=== PATIENT | male | born 1945 | race Caucasian/White ===

== ENCOUNTER 2017-01-04 12:52 | Outpatient (CLI) | payer MEDICARE ==
--- NOTE | 2017-01-04 13:39 | RAD ---
TWO VIEWS OF THE CHEST: 01/04/2017 HISTORY: Dyspnea. COMPARISON: 02/18/2013 FINDINGS: The lungs are hyperinflated, consistent with air trapping. Severe emphysematous changes are present . Increased linear and interstitial density is noted in the bilateral perihilar regions in both noel g bases, right greater than left, similar when compared to prior imaging. There is an old posterola teral left-sided rib fracture. There is no pneumothorax, pleural fluid, focal consolidation, or myron eolar edema. No significant interval change noted. IMPRESSION: Prominent emphysematous change with pulmonary hyperinflation, evidence of air trapping. POS: [facility]
== END 2017-01-04 12:53 | disposition home or self-care (01) ==
LOC: RAD 12:52
PROVIDERS: ATTEND Internal Medicine Critical Care Medicine
DX: R06.00 Dyspnea, unspecified (principal)
CPT/HCPCS: 71020

== ENCOUNTER 2017-07-01 12:56 | Outpatient (CLI) | payer MEDICARE ==
--- NOTE | 2017-07-01 14:20 | RAD ---
PA AND LATERAL CHEST RADIOGRAPH: Date: 07-01-17 History: Dyspnea. Comparison: 01-04-17 FINDINGS: Cardiac silhouette and pulmonary vasculature are within normal limits. Lungs are hyperinflated with l ucencies in the upper lung zones suggesting emphysematous changes within the upper lobes. There is sl ight blunting of the right lateral costophrenic angle. This is a stable finding and may be related to pleural and parenchymal scarring. Lungs otherwise appear clear. Degenerative change is again present in the spine. There is a remote fracture again seen involving the left anterior third rib. Vascular calcification seen in the thoracic aorta. IMPRESSION: Stable chest with stable chronic lung changes. No acute cardiopulmonary process is seen. POS: [facility]
== END 2017-07-01 12:57 | disposition home or self-care (01) ==
LOC: RAD 12:56
PROVIDERS: ATTEND Internal Medicine Critical Care Medicine
DX: R06.00 Dyspnea, unspecified (principal)
CPT/HCPCS: 71046

== ENCOUNTER 2017-07-13 10:36 | Outpatient (CLI) | payer MEDICARE ==
--- NOTE | 2017-07-13 12:43 | RAD ---
PA AND LATERAL CHEST: HISTORY: A 71-year-old male with a history of dyspnea. COMPARISON: 07/01/2017 FINDINGS: Marked stable bilateral hyperinflation and chronic lung changes. No confluent pneumonia, overt edema , or pleural effusion. Stable right costophrenic angle blunting and biapical pleural thickening. IMPRESSION: Stable appearing hyperinflation and chronic lung changes. No new process. POS: [facility]
== END 2017-07-13 10:37 | disposition home or self-care (01) ==
LOC: RAD 10:36
PROVIDERS: ATTEND Internal Medicine Critical Care Medicine
DX: R06.00 Dyspnea, unspecified (principal); J98.4 Other disorders of lung
CPT/HCPCS: 71046

== ENCOUNTER 2017-08-03 12:44 | Outpatient (CLI) | payer MEDICARE ==
--- NOTE | 2017-08-03 14:25 | RAD ---
TWO VIEWS OF THE CHEST: COMPARISON: 07/13/17. HISTORY: Dyspnea. FINDINGS: Two views of the chest show a cardiomediastinal silhouette which his upper limits of normal in size w ith atherosclerotic calcifications in the aorta. There is hyperexpansion of the lungs which may be s econdary to COPD. There is no evidence of consolidation, mass, or pleural effusion. Degenerative ch anges are seen in the spine. IMPRESSION: No evidence of acute cardiopulmonary disease. POS: [facility]
== END 2017-08-03 12:45 | disposition home or self-care (01) ==
LOC: RAD 12:44
PROVIDERS: ATTEND Internal Medicine Critical Care Medicine
DX: R06.00 Dyspnea, unspecified (principal)
CPT/HCPCS: 71046

== ENCOUNTER 2018-04-12 08:56 | Outpatient (CLI) | payer MEDICARE | END 2018-04-12 08:57 | disposition home or self-care (01) | LOC: CTENTCT 08:56 | PROVIDERS: ATTEND Specialist | DX: J01.90 Acute sinusitis, unspecified (principal) | CPT/HCPCS: 70486 ==

== ENCOUNTER 2018-09-01 21:46 | Inpatient (IN) | payer MEDICARE ==
[2018-09-01] MEDS ORDERED: Dexamethasone 4 mg/ml Vial ONE ×2 (22:05→22:06)
[2018-09-01] MEDS ORDERED: cefTRIAXone\\ROCEPHIN 1 GM VIAL ONE (22:06)
[2018-09-01 22:13] LABS: #Eosinphils 0.1 thou/uL (0.0-0.7); #Lymphocytes 1.2 thou/uL (1.20-3.40); #Monocytes 1.2 thou/uL (0.11-0.59); %Basophils 0.3 % (0.0-1.0); %Eosinophils 0.3 % (0.0-10.0); %Lymphocytes 7.1 % (21.0-51.0); %Monocytes 7.4 % (0.0-10.0); Hemoglobin 14.7 g/dL (14.0-18.0); Mean Corpuscular HGB CONC 33.6 g/dL (32.0-36.0); Mean Corpuscular Hemoglobin 32.7 pg (27.0-31.0); Mean Corpuscular Volume 97.5 fL (78.0-98.0); Mean Platelet Volume 8.1 fL (7.4-10.4); Platelet Count 198 thou/uL (130-400); White Blood Cell (WBC) Count 16.5 thou/uL (4.8-10.8)
[2018-09-01] MEDS ORDERED: Azithromycin 500 MG VIAL ONE (22:19)
[2018-09-01 22:35] LABS: ALT (SGPT) 526 U/L (8-55); AST (SGOT) 424 U/L (5-34); Albumin 4.1 g/dL (3.4-4.8); Alkaline Phosphatase 349 U/L (40-150); Anion Gap 13 mmol/L (10-20); BUN (Urea Nitrogen) 22 mg/dL (8.4-25.7); Bilirubin, Total 2.5 mg/dL (0.2-1.2); Calc. Creatinine Clearance 0 mL/min (70-130); Calcium 9.5 mg/dL (7.8-10.44); Carbon Dioxide 28 mmol/L (23-31); Chloride 93 mmol/L (98-107); Estimated GFR-MDRD 68; Globulin 2.8 g/dL (2.4-3.5); Glucose 140 mg/dL (80-115); Potassium 4.2 mmol/L (3.5-5.1); Protein, Total 6.9 g/dL (5.8-8.1); Sodium 130 mmol/L (136-145)
--- NOTE | 2018-09-01 23:03 | RAD ---
PORTABLE AP CHEST X-RAY 09/01/18 HISTORY: Difficulty breathing. COMPARISON: 01/28/18. FINDINGS: There is increased interstitial densities present at each lung base with findings at the right lung s imilar to prior exam and likely related to mild chronic lung changes. However, the interstitial densi ties and patchy parenchymal densities at the left lung base represent an interval change and findings are worrisome for developing pneumonia at the left lung base. Cardiac silhouette and pulmonary vasculature are within normal limits. Vascular calcifications seen in the thoracic aorta. No other interval change. IMPRESSION: 1. Pneumonia at the left lung base. Follow-up to resolution is recommended. 2. Chronic lung changes. POS: [facility]
[2018-09-02] MEDS ORDERED: Acetaminophen 325 MG TAB PO PRN ×2 (01:33→06:30)
[2018-09-02] MEDS ORDERED: Ondansetron ODT 4 MG TAB SL PRN (01:33)
[2018-09-02] MEDS ORDERED: Ondansetron PF 4 MG/2 ML Vial IVP PRN (01:33)
[2018-09-02] MEDS ORDERED: Senokot S 8.6-50 MG TAB PO PRN (06:30)
[2018-09-02] MEDS ORDERED: Cepastat Lozenges 1 LOZ PO PRN (06:30)
[2018-09-02] MEDS ORDERED: Metoclopramide HCl 10 MG/2 ML VIAL IVP PRN (06:30)
[2018-09-02] MEDS ORDERED: Diabetic Tussin 200 MG/10 ML UDCUP PO PRN (06:30)
[2018-09-02] MEDS ORDERED: Loperamide HCl 2 MG CAP PO PRN (06:30)
[2018-09-02] MEDS ORDERED: Artificial Tears 18 DROP/0.9 ML EA EYE PRN (06:30)
[2018-09-02] MEDS ORDERED: Calcium Carbonate 500 MG ChewTAB PO PRN (06:30)
[2018-09-02] MEDS ORDERED: Loratadine 10 MG TAB PO PRN (06:30)
[2018-09-02] MEDS ORDERED: cloNIDine 0.1 MG TAB PO PRN (06:30)
[2018-09-02] MEDS ORDERED: Bisacodyl 10 MG SUPP PR PRN (06:30)
[2018-09-02] MEDS ORDERED: Sodium Chloride 0.65% Nasal 44 ML BOT EA NARE PRN (06:30)
[2018-09-02] MEDS ORDERED: Zolpidem Tartrate 5 MG TAB PO PRN (06:30)
[2018-09-02] MEDS ORDERED: Bisacodyl 5 MG TAB PO PRN (06:30)
[2018-09-02] MEDS ORDERED: methylPREDNISolone Sod Succ 40 MG VIAL IVP SCH (08:00)
[2018-09-02 08:11] LABS: HBCM Index 0.06 S/CO (0-0.79); HBSAg Index 0.28 S/CO (0-0.99); Hep A IgM AB Non-Reactive (NonReactive); Hep A IgM S/CO 0.13 S/CO (0-0.79); Hep B Surf Ag Non-Reactive S/CO (NonReactive); Hep C IgG Ab Non-Reactive (NonReactive); Hep C Index 0.09 S/CO (0-0.79); Hepatitis B Core IgM Abs Non-Reactive (NonReactive)
[2018-09-02] MEDS: Mometasone/Formoterol 120 PUFF INHALER INH SCH ×2 (08:21→18:32)
[2018-09-02] MEDS ORDERED: TERAZOSIN HCL 5 MG PO SCH (09:00)
[2018-09-02] MEDS ORDERED: Non-Formulary Item 1 EACH (Ascorbic Acid [Vitamin C] 1,000 MG) PO SCH (09:00)
[2018-09-02] MEDS ORDERED: Metoprolol Tartrate 100 MG TAB PO SCH (09:00)
[2018-09-02] MEDS ORDERED: Non-Formulary Item 1 EACH (Vit A/Vit C/Vit E/Zinc/Copper [Preservision Areds] 1 TABLET) PO SCH (09:00)
[2018-09-02] MEDS: Ascorbic Acid 500 mg Chewable Tablet PO SCH (09:08)
[2018-09-02] MEDS: guaiFENesin ER 600 MG TAB PO SCH ×2 (09:09→21:01)
[2018-09-02] MEDS: Triamterene/Hydrochlorothiazide 37.5 mg/25 mg Tablet PO SCH (09:09)
[2018-09-02] MEDS: Metoprolol Tartrate 50 MG TAB PO SCH (09:09)
[2018-09-02] MEDS: Apixaban 5 MG TAB PO SCH ×2 (09:09→21:01)
[2018-09-02] MEDS: Famotidine 20 MG TAB PO SCH ×2 (09:10→21:01)
[2018-09-02] MEDS: Montelukast Sodium 10 mg Tablet PO SCH (09:10)
[2018-09-02] MEDS: Digoxin 0.125 MG TAB PO SCH (09:10)
[2018-09-02] MEDS: Vit A,C & E/Lutein/Minerals Tablet PO SCH (09:13)
[2018-09-02] MEDS: Finasteride 5 MG TAB PO SCH (09:14)
[2018-09-02] MEDS: Citalopram 20 MG TAB PO SCH (09:14)
--- NOTE | 2018-09-02 10:59 | HP ---
PRIMARY CARE PHYSICIAN: [facility]. The patient primary care physician in [place], [place]. REASON FOR ADMISSION: Sepsis. HISTORY OF PRESENT ILLNESS: A 72-year-old male who has underlying history of atrial fibrillation as well as a history of lung cancer and COPD, who presented to emergency room last night with complaint of fever with chills. The patient was also having shortness of breath. The patient reports that yesterday around 3:00 p.m., he was experiencing body ache, joint pain, chest discomfort, shoulder pain and he was started having chills. He was having temperature 101 at home. He was also having cough, which was productive of yellowish sputum without any blood for last 2-3 days. He was having increasing cough, increasing sputum initially and subsequently sputum reduced yesterday. He was feeling generalized weakness. He had one episode of vomiting yesterday. He was denying any abdominal pain. He denies any sick exposure. He denies any recent travel. He denies any recent upper respiratory infection. In the emergency room, the patient was evaluated and he had leukocytosis with left shift, hyponatremia, abnormal LFT and his chest x-ray showed left lower lobe pneumonia. The patient was given Rocephin and azithromycin in the emergency room. Subsequently, he was admitted to the medical floor. When I saw this morning, the patient was feeling much better. The patient denies any UTI symptoms. He denies any constipation, diarrhea, or abdominal pain. He denies any headache or focal neurological deficit. REVIEW OF SYSTEMS: CONSTITUTIONAL: Negative for weight loss or gain, ability to conduct usual activities. SKIN: Negative for rash, itching. EYES: Negative for double vision, pain. ENT/MOUTH: Negative for nose bleeding, neck stiffness, pain, tenderness. CARDIOVASCULAR: Negative for palpitations, dyspnea on exertion, orthopnea. RESPIRATORY: Negative for shortness of breath, wheezing, cough, hemoptysis, fever or night sweats. GASTROINTESTINAL: Negative for poor appetite, abdominal pain, heartburn, nausea, vomiting, constipation, or diarrhea. GENITOURINARY: Negative for urgency, frequency, dysuria, nocturia. MUSCULOSKELETAL: Negative for pain, swelling. NEUROLOGIC/PSYCHIATRIC: Negative for anxiety, depression. ALLERGY/IMMUNOLOGIC: Negative for skin rash, bleeding tendency. Please see my HPI for pertinent positives and negatives. All other review of systems reviewed and negative except as mentioned in HPI. PAST MEDICAL HISTORY: 1. Paroxysmal atrial fibrillation. 2. History of lung cancer, treated with chemotherapy. 3. COPD. 4. Benign enlargement of prostate. 5. Hypertension. 6. Chronic anticoagulation with Eliquis. PAST PSYCHIATRIC HISTORY: 1. Anxiety. 2. Depression. PAST SURGICAL HISTORY: 1. Right upper lobe lobectomy. 2. Cholecystectomy. 3. Right elbow surgery. 4. Lumbar spine surgery. SOCIAL HISTORY: The patient drinks alcohol socially twice a month. He is a former smoker, he quit smoking few years ago. He denies any other illicit drug abuse. FAMILY HISTORY: No strong family history of premature coronary artery disease, stroke, or cancer. ALLERGIES: DEMEROL. CURRENT HOME MEDICATIONS: 1. Ventolin HFA two puffs q.6 h. p.r.n. 2. Eliquis 5 mg p.o. b.i.d. 3. Vitamin C 1000 mg p.o. daily. 4. Symbicort one puff inhalation b.i.d. 5. Celexa 40 mg daily. 6. Digoxin 125 mcg p.o. daily. 7. Proscar 5 mg daily. 8. Lopressor 50 mg daily. 9. Singulair 10 mg daily. 10. Red yeast rice 1200 mg p.o. daily. 11. Hytrin 5 mg p.o. daily. 12. Triamterene with hydrochlorothiazide one tablet daily. 13. Ocuvite one tablet p.o. daily. EMERGENCY ROOM COURSE: The patient was given Rocephin 1 g, azithromycin 500 mg, DuoNeb therapy, and Decadron 10 mg IV push. PHYSICAL EXAMINATION: VITAL SIGNS: On arrival, blood pressure 114/62, pulse 93 and irregular, respiratory rate 18, temperature 98.2, and saturation 99% on room air. Weight 95.2 kg. GENERAL: The patient is currently alert and awake, in no obvious acute distress. HEAD: Normocephalic and atraumatic. EYES: Pupils round and reactive to light. Extraocular muscles intact. ENT: Oropharynx within normal limits. Moist mucous membranes. No oral lesion. No pharyngeal erythema. No exudate. NECK: Supple. No JVD. No thyromegaly. No carotid bruit. No jugular venous distention. LUNGS: Air entry reduced at left base. A few rales noted. No wheeze. No rhonchi. No accessory muscles of respiration in use. CARDIAC: S1 and S2 appear irregular, rate controlled. No murmur. No gallop. No rub. ABDOMEN: Soft. No Olmos sign. No epigastric discomfort. No suprapubic tenderness. No organomegaly. No mass. No peritoneal sign. BACK: Unremarkable. No CVA tenderness. EXTREMITIES: Upper extremities; passive movements of all joints are normal. Lower extremities; no edema, good distal pulsation, no calf tenderness. SKIN: No skin rash. HEMATOLOGICAL SYSTEM: No lymphadenopathy. PSYCHIATRIC: Normal affect. NEUROLOGIC: Nonfocal examination. SIGNIFICANT LABORATORY DATA: EKG showing AFib with rapid ventricular response, but heart rate is only 106. Chest x-ray showing left lower lobe pneumonia. CBC; WBC 16.5, hemoglobin 14.7, and platelets 198. BMP; sodium 130, potassium 4.2, chloride 93, carbon dioxide 28, anion gap 13, BUN 22, creatinine 1.07, glucose 140, and calcium 9.5. Lactic acid 1.8. LFT; bilirubin 2.5, AST 424, ALT 526, alkaline phosphatase 349, and albumin 4.1. Troponin less than 0.010 and BNP 77. Hepatitis profile negative. ASSESSMENT AND PLAN: Impression: 1. Sepsis. The patient has fever, chills, leukocytosis with left shift. Source of infection is left basal pneumonia. The patient is admitted in the hospital and receiving antibiotic therapy as well as IV fluid. 2. Left lower lobe pneumonia, community-acquired. Blood culture sent. We will continue with Rocephin 1 g q.24 h., Levaquin 750 mg IV daily, Mucinex 600 mg twice daily, and DuoNeb therapy q.6 h. 3. Chronic obstructive pulmonary disease with mild exacerbation. We will continue DuoNeb q.6 h., Dulera two-puff inhalation b.i.d., Singulair 10 mg daily, Mucinex 600 mg twice daily, empiric antibiotic therapy with Rocephin and levofloxacin. 4. Paroxysmal atrial fibrillation. We will continue digoxin 0.125 mg p.o. daily, metoprolol 50 mg daily, and Eliquis 5 mg p.o. b.i.d. 5. Benign enlargement of prostate. We will continue terazosin 5 mg p.o. daily. 6. Hypertension. If blood pressure permits, then we will continue triamterene and hydrochlorothiazide one tablet p.o. daily. 7. Abnormal liver function test. The patient has cholecystectomy done in the past, suspecting for choledocholithiasis. At this point, the patient is completely asymptomatic without any Olmos sign, without any abdominal pain. Seems like even if he had stone, then stone might have passed. We will obtain right upper quadrant ultrasound. Hepatitis profile negative. We will repeat LFT tomorrow. 8. Hyponatremia and hypochloremia. The patient will be given NS at 100 mL/h and we will repeat labs tomorrow. 9. Deep venous thrombosis prophylaxis, not needed because the patient is already on Eliquis therapy. 10. Gastrointestinal prophylaxis, Pepcid 20 mg p.o. b.i.d. 11. Code status. The patient is full code. The patient does not have any surrogate decision maker. DISPOSITION PLAN: Based on clinical course while in the hospital, we will also evaluate with PT/OT. Plan of care discussed with the patient's family member at bedside in detail and answered all their questions. Job ID: [id number]
[2018-09-02 11:22] LABS: Bilirubin Negative (Negative); Blood, Urine Negative (Negative); Clarity CLEAR (Clear); Glucose, Urine (Dipstick) Negative (Negative); Leukocyte Negative (Negative); Nitrite Negative (Negative); Protein, Urine (Dipstick) Negative (Neg-Trace); Specific Gravity, Urine 1.009 (1.002-1.036); Urobilinogen 0.2 mg/dL (0.2-1.0); pH, Urine 6.5 (5.0-9.0)
[2018-09-02 11:28] LABS: Bacteria/HPF None Seen HPF (None Seen); Hyaline Casts/LPF 0-3 HYALINE CAST LPF (0-3 Hyaline); Pathc Cast-AUWi Flag 0.13 (0-2.49); RBC/HPF None Seen HPF (0-3); Squamous Epithelial None Seen HPF (0-3); WBC/HPF None Seen HPF (0-3)
[2018-09-02 11:31] LABS: Strep pneumo Urine Ag NEGATIVE (NEGATIVE)
--- NOTE | 2018-09-02 11:32 | ULT ---
Gallbladder ultrasound: Multiple grayscale images of right upper quadrant obtained according to protocol. INDICATION: Pain FINDINGS: Liver: Normal Gallbladder: Surgically absent Olmos's Sign: Negative Common bile duct is normal. Ascites: None IMPRESSION: Surgical absence of gallbladder. No acute abnormality identified within right upper quadrant.
[2018-09-02] MEDS: Sodium Chloride 0.9% 1,000 ML IV SCH ×2 (13:17→21:06)
[2018-09-02] MEDS ORDERED: cefTRIAXone\\ROCEPHIN 1 GM in Sodium Chloride 0.9% 100 ML IVPB SCH (21:00)
[2018-09-02] MEDS ORDERED: Terazosin HCl 5 MG CAP PO SCH (21:00)
[2018-09-03 06:00] LABS: #Lymphocytes 1.4 thou/uL (1.20-3.40); #Monocytes 0.9 thou/uL (0.11-0.59); #Neutrophils 10.1 thou/uL (1.40-6.50); %Basophils 0.1 % (0.0-1.0); %Eosinophils 0.3 % (0.0-10.0); %Lymphocytes 11.3 % (21.0-51.0); %Monocytes 7.3 % (0.0-10.0); %Neutrophils 81.1 % (42.0-75.0); Hemoglobin 13.8 g/dL (14.0-18.0); Mean Corpuscular HGB CONC 32.8 g/dL (32.0-36.0); Mean Corpuscular Hemoglobin 32.4 pg (27.0-31.0); Mean Corpuscular Volume 98.8 fL (78.0-98.0); Platelet Count 198 thou/uL (130-400); RBC Distribution Width 11.8 % (11.5-14.5); Red Blood Cell (RBC) Count 4.24 mill/uL (4.70-6.10); White Blood Cell (WBC) Count 12.4 thou/uL (4.8-10.8)
[2018-09-03 06:26] LABS: ALT (SGPT) 356 U/L (8-55); AST (SGOT) 79 U/L (5-34); Albumin 3.9 g/dL (3.4-4.8); Alkaline Phosphatase 265 U/L (40-150); Anion Gap 12 mmol/L (10-20); BUN (Urea Nitrogen) 14 mg/dL (8.4-25.7); Bilirubin, Total 0.8 mg/dL (0.2-1.2); Calc. Creatinine Clearance 116 mL/min (70-130); Calcium 9.2 mg/dL (7.8-10.44); Carbon Dioxide 26 mmol/L (23-31); Chloride 99 mmol/L (98-107); Estimated GFR-MDRD Greater than 90; Globulin 2.7 g/dL (2.4-3.5); Glucose 114 mg/dL (80-115); Potassium 3.4 mmol/L (3.5-5.1); Protein, Total 6.6 g/dL (5.8-8.1); Sodium 134 mmol/L (136-145)
[2018-09-03] MEDS: Mometasone/Formoterol 120 PUFF INHALER INH SCH (07:18)
[2018-09-03] MEDS: Vit A,C & E/Lutein/Minerals Tablet PO SCH (08:01)
[2018-09-03] MEDS: Triamterene/Hydrochlorothiazide 37.5 mg/25 mg Tablet PO SCH (08:01)
[2018-09-03] MEDS: Famotidine 20 MG TAB PO SCH (08:01)
[2018-09-03] MEDS: Apixaban 5 MG TAB PO SCH (08:02)
[2018-09-03] MEDS: Digoxin 0.125 MG TAB PO SCH (08:02)
[2018-09-03] MEDS: Citalopram 20 MG TAB PO SCH (08:02)
[2018-09-03] MEDS: Finasteride 5 MG TAB PO SCH (08:02)
[2018-09-03] MEDS: Ascorbic Acid 500 mg Chewable Tablet PO SCH (08:04)
[2018-09-03] MEDS: Metoprolol Tartrate 50 MG TAB PO SCH (08:04)
[2018-09-03] MEDS: guaiFENesin ER 600 MG TAB PO SCH (08:04)
[2018-09-03] MEDS: Montelukast Sodium 10 mg Tablet PO SCH (08:05)
[2018-09-03 08:40] VITALS: BP 117/56; TEMP 97.2
--- NOTE | 2018-09-03 10:53 | DIS ---
DATE OF ADMISSION: 09/01/2018 DATE OF DISCHARGE: 09/03/2018 PRIMARY CARE PHYSICIAN: Dr. Juan Manuel Tomlin. DISCHARGE DISPOSITION: Home. PRIMARY DISCHARGE DIAGNOSES: 1. Community-acquired bacterial pneumonia (left lower lobe). 2. Abnormal LFT, suspected from choledocholithiasis, improving. 3. Hypokalemia. 4. Hyponatremia. 5. 'Sepsis. SECONDARY DISCHARGE DIAGNOSES: 1. Paroxysmal atrial fibrillation. 2. Hypertension. 3. History of lung cancer. 4. Chronic obstructive pulmonary disease. 5. Chronic anticoagulation. 6. Benign enlargement of prostate. PRIMARY PROCEDURE/OPERATION: None. RADIOLOGICAL INVESTIGATION: Chest x-ray showed left lower lobe infiltration consistent with pneumonia. SIGNIFICANT LABORATORY DATA: WBC 12.4, hemoglobin 13.8, and platelets are 198. Sodium 134, potassium 3.4, BUN 14, and creatinine 0.84. AST 79, ALT 356, alkaline phosphatase 265. BNP 77. Troponin, negative. Albumin 3.9. Hepatitis profile, negative. Urine strep pneumoniae antigen, negative. Urinalysis, normal. DISCHARGE MEDICATIONS: New medication: 1. Levaquin 750 mg p.o. daily for 7 days. Continue following medication: 1. Ventolin HFA two two puffs q.6 hourly p.r.n. 2. Eliquis 5 mg p.o. b.i.d. 3. Vitamin C 1000 mg p.o. daily. 4. Symbicort one puff inhalation b.i.d. 5. Celexa 40 mg daily. 6. Digoxin 125 mcg p.o. daily. 7. Proscar 5 mg daily. 8. Lopressor 50 mg daily. 9. Singulair 10 mg daily. 10. Red yeast rice 1200 mg p.o. daily. 11. Hytrin 5 mg p.o. daily. 12. Dyazide 1 tablet daily. 13. Multi mineral one tablet daily. CONTRAINDICATION: None. CODE STATUS: Full code. INPATIENT ASSISTANT MANAGER RETAIL: None. ALLERGIES: DEMEROL. DISCHARGE PLAN: Posthospital, the patient will follow up with Dr. Juan Manuel Tomlin in one week, the patient's primary care physician requested to repeat LFT as well as chest x-ray in 2 to 3 weeks. HOSPITAL COURSE: A 72-year-old male, who was having lower respiratory symptoms with cough and shortness of breath for last 2 to 3 days and on the day of admission, he was feeling bad with nausea, vomiting, vague abdominal discomfort, and feeling sick. He was also having high-grade fever at home. He arrived to emergency room. He was found with abnormal LFT. He had sepsis criteria. His chest x-ray showed left lower lobe pneumonia. We also suspected choledocholithiasis. We did a hepatitis profile, which came back negative. Abdominal ultrasound was also normal. His LFT also started improving. Our suspicion is that he might have passed a stone from bile duct. At this point, his bile duct is within normal limit and he does not have any Olmos sign. We advised him to follow up with his primary care physician and repeat LFT within a week. If LFT is abnormal, then he may need further investigation or referral to architectural manager. This patient does not want to stay in hospital for more monitoring. I gave him option of staying in the hospital and repeat labs tomorrow and further investigation if needed, but he prefers to go home and do as an outpatient basis with help of his primary care physician. His primary care physician has also requested to repeat chest x-ray to see resolution of pneumonia. This patient is on room air. He is feeling much better. He wants to go home. I have seen and examined the patient at bedside today, all vitals are normal. His examination is completely normal. Plan of care discussed with the patient and his at bedside. Job ID: [id number]
--- NOTE | 2018-09-03 12:07 | EKG ---
Test Reason : Blood Pressure : / mmHG Vent. Rate : 106 BPM Atrial Rate : 108 BPM P-R Int : 000 ms QRS Dur : 094 ms QT Int : 300 ms P-R-T Axes : 000 052 062 degrees QTc Int : 398 ms Atrial fibrillation with rapid ventricular response Abnormal ECG Confirmed by LUIS ELISE M.D. ([id number]), editor city [place] ([id number]) on 09/03/2018 12:07:16 PM Referred By: Confirmed By:LUIS ELISE M.D.
[2018-09-06 01:07] LABS: L.pneumophilia Abs <0.91 OD ratio (0.00-0.90)
== END 2018-09-03 10:40 | disposition home or self-care (01) | DRG 871 ==
LOC: ERS 21:46 → SJJU 23:37
PROVIDERS: ADMIT Hospitalist; ATTEND Hospitalist
DX: A41.9 Sepsis, unspecified organism (principal); J18.9 Pneumonia, unspecified organism; J44.0 Chronic obstructive pulmonary disease with (acute) lower respiratory infection; J44.1 Chronic obstructive pulmonary disease with (acute) exacerbation; E87.1 Hypo-osmolality and hyponatremia; I48.0 Paroxysmal atrial fibrillation; N40.0 Benign prostatic hyperplasia without lower urinary tract symptoms; I10 Essential (primary) hypertension; F41.9 Anxiety disorder, unspecified; F32.9 Major depressive disorder, single episode, unspecified; R94.5 Abnormal results of liver function studies; E87.8 Other disorders of electrolyte and fluid balance, not elsewhere classified; E87.6 Hypokalemia; Z85.118 Personal history of other malignant neoplasm of bronchus and lung; Z90.49 Acquired absence of other specified parts of digestive tract; Z87.891 Personal history of nicotine dependence
CPT/HCPCS: 36415; 71045; 76705; 80053; 80074; 81001; 83605; 83880; 84484; 85025; 86713; 87040; 87633; 87804; 87899; 93005; 94640; 96365; 96367; 96375; J0456; J0696; J1100; J1956; J2920; J3490; J7620

== ENCOUNTER 2019-01-23 10:30 | Inpatient (IN) | payer MEDICARE ==
[2019-01-20 13:40] VITALS: BMI 27.7
[2019-01-23 11:42] LABS: #Basophils 0.1 thou/uL (0.0-0.2); #Eosinphils 0.1 thou/uL (0.0-0.7); #Lymphocytes 2.1 thou/uL (1.20-3.40); #Monocytes 0.8 thou/uL (0.11-0.59); #Neutrophils 6.3 thou/uL (1.40-6.50); %Basophils 0.8 % (0.0-1.0); %Lymphocytes 21.9 % (21.0-51.0); %Monocytes 8.9 % (0.0-10.0); %Neutrophils 67.4 % (42.0-75.0); Hemoglobin 15.5 g/dL (14.0-18.0); Mean Corpuscular HGB CONC 33.5 g/dL (32.0-36.0); Mean Corpuscular Hemoglobin 32.7 pg (27.0-31.0); Mean Corpuscular Volume 97.7 fL (78.0-98.0); Mean Platelet Volume 7.9 fL (7.4-10.4); Platelet Count 208 thou/uL (130-400); Red Blood Cell (RBC) Count 4.73 mill/uL (4.70-6.10); White Blood Cell (WBC) Count 9.4 thou/uL (4.8-10.8)
[2019-01-23 11:52] LABS: INR-International Normal Ratio 0.9; PTT 31.2 SEC (22.9-36.1); Prothrombin Time 12.5 SEC (12.0-14.7)
[2019-01-23] MEDS ORDERED: Sodium Chloride 0.9% 100 ML ONE (11:53)
[2019-01-23] MEDS ORDERED: cefTRIAXone\\ROCEPHIN 2 GM VIAL ONE (11:53)
[2019-01-23 12:12] LABS: Anion Gap 13 mmol/L (10-20); BUN (Urea Nitrogen) 18 mg/dL (8.4-25.7); Calc. Creatinine Clearance 99 mL/min (70-130); Calcium 9.8 mg/dL (7.8-10.44); Carbon Dioxide 29 mmol/L (23-31); Chloride 99 mmol/L (98-107); Estimated GFR-MDRD 81; Glucose 99 mg/dL (83-110); Potassium 4.1 mmol/L (3.5-5.1); Sodium 137 mmol/L (136-145)
[2019-01-23] MEDS ORDERED: Fentanyl 100 MCG/2 ML VIAL ONE ×3 (13:07→17:49)
[2019-01-23] MEDS ORDERED: Ondansetron HCl/PF 4 MG/2 ML Vial IVP PRN (15:05)
[2019-01-23] MEDS ORDERED: Promethazine HCl 25 MG/ML VIAL IM PRN (15:05)
[2019-01-23] MEDS ORDERED: Promethazine HCl 25 MG/ML VIAL SLOW IVP PRN (15:05)
[2019-01-23] MEDS ORDERED: Lidocaine 1% PF 5 ML VIAL ONE (15:38)
[2019-01-23] MEDS ORDERED: ePHEDrine 50 MG/ML VIAL ONE (15:38)
[2019-01-23] MEDS ORDERED: PROPOFOL 200 MG/20 ML VIAL ONE (15:38)
[2019-01-23] MEDS ORDERED: Ondansetron PF 4 MG/2 ML Vial ONE (15:38)
[2019-01-23] MEDS ORDERED: Acetaminophen/Codeine 30-300mg Tablet PO PRN (15:46)
[2019-01-23] MEDS ORDERED: B & O ONE (15:48)
[2019-01-23] MEDS ORDERED: [UNRECOGNIZED DRUG - REMARK] FS SCH (16:00)
[2019-01-23] MEDS ORDERED: B & O PR SCH (16:00)
--- NOTE | 2019-01-23 19:18 | OP ---
DATE OF PROCEDURE: 01/23/2019 PREOPERATIVE DIAGNOSES: Lower urinary tract symptoms and bladder outlet obstruction. POSTOPERATIVE DIAGNOSES: Lower urinary tract symptoms and bladder outlet obstruction. PROCEDURES PERFORMED: Cystoscopy and transurethral resection of the prostate. ANESTHETIC: General. EBL: 150 mL. DRAINS: A 22-Belarusian Chu catheter with 60 mL in the balloon. FINDINGS: He had 1+ trabeculation to ureteral orifices, normal position. Clear efflux. No bladder tumor, foreign body, or stone. Large trilobar BPH. DESCRIPTION OF PROCEDURE: Obtained written and verbal consent from the patient, after documenting normal preop blood work and after receiving IV antibiotics, he was taken to the operating suite. He was placed in the supine position on the treatment table. PlexiPulses were placed on his lower extremities and turned on. He was given a general anesthetic and oral obturator intubation. He was placed in the dorsal lithotomy position. He was sterilely prepped and draped. Cystoscopy was performed with a 22-Belarusian sheath, this was well lubricated and passed under direct vision through the male urethra into the urinary bladder. The bladder was examined both the 30 and the 70-degree lens with the findings as above. At this point, we brought in a 24-Belarusian resectoscope sheath with a visual obturator. It was well lubricated and with the aid of a 30-degree lens and video camera and monitor was passed through the male urethra into the bladder. We did have to dilate him from 22 to 26-Belarusian with Andrew sounds to easily pass this. The bladder was filled and emptied number of times. Our landmarks including the verumontanum, the bladder neck, and the ureteral orifices, and trigone were identified. We initially resected the median lobe up off the bladder neck back to capsular fibers. We then resected the floor from the bladder neck to just proximal to the verumontanum. Resection was done back to capsular fibers. The left lobe was taken down from the 1 o'clock to 5 o'clock position and the right lobe from the 11 o'clock to 7 o'clock position. Apical tissue was resected in halfly bites. The chips were evacuated from the bladder with the [employer] evacuator. Repeat cystoscopy showed no further chips in the bladder and normal-appearing trigone and bladder neck. We obtained hemostasis with electrocautery unit as we went and then at the end, assured hemostasis with the same unit. At this point, the instruments were removed. A Chu catheter was placed 22-Belarusian with aid of a catheter guide, 60 mL were placed in the balloon. It was hand irrigated and it was clear. He was placed on light traction on his right thigh with a Velcro leg strap and he was started on continuous bladder irrigation. He was then awakened and extubated and taken by stretcher to the recovery room. Job ID: [id number]
[2019-01-23] MEDS: Acetaminophen/Codeine 30-300mg Tablet PO PRN (22:45)
[2019-01-23] MEDS: Docusate 100 MG CAP PO SCH (22:47)
[2019-01-23] MEDS ORDERED: B & O PR PRN (23:00)
[2019-01-23] MEDS ORDERED: PROVENTIL INHALER 6.7 G (200 INHALATIONS) INH PRN (23:28)
[2019-01-24] MEDS: Mometasone/Formoterol 120 PUFF INHALER INH SCH ×2 (07:04→18:42)
[2019-01-24] MEDS ORDERED: RED YEAST RICE 600MG PO SCH (09:00)
[2019-01-24] MEDS: Finasteride 5 MG TAB PO SCH (10:07)
[2019-01-24] MEDS: Triamterene/Hydrochlorothiazide 37.5 mg/25 mg Tablet PO SCH (10:07)
[2019-01-24] MEDS: Ascorbic Acid 500 mg Chewable Tablet PO SCH (10:08)
[2019-01-24] MEDS: Vit A,C & E/Lutein/Minerals Tablet PO SCH (10:08)
[2019-01-24] MEDS: Docusate 100 MG CAP PO SCH ×2 (10:09→21:30)
[2019-01-24] MEDS: Citalopram 20 MG TAB PO SCH (10:10)
[2019-01-24] MEDS: Digoxin 0.125 MG TAB PO SCH (10:10)
[2019-01-24] MEDS: cefTRIAXone\\ROCEPHIN 1 GM in Sodium Chloride 0.9% 100 ML IVPB SCH (13:09)
[2019-01-24] MEDS: Acetaminophen/Codeine 30-300mg Tablet PO PRN (17:28)
[2019-01-24] MEDS ORDERED: Metoprolol Tartrate 50 MG TAB PO SCH (21:00)
[2019-01-24] MEDS ORDERED: ROFLUMILAST 500 MCG PO SCH (21:00)
[2019-01-24] MEDS ORDERED: Montelukast Sodium 10 mg Tablet PO SCH (21:00)
[2019-01-25] MEDS: Acetaminophen/Codeine 30-300mg Tablet PO PRN (03:55)
[2019-01-25] MEDS: Mometasone/Formoterol 120 PUFF INHALER INH SCH (07:40)
[2019-01-25] MEDS: Citalopram 20 MG TAB PO SCH (08:58)
[2019-01-25] MEDS: Digoxin 0.125 MG TAB PO SCH (08:58)
[2019-01-25] MEDS: Finasteride 5 MG TAB PO SCH (08:58)
[2019-01-25] MEDS: Triamterene/Hydrochlorothiazide 37.5 mg/25 mg Tablet PO SCH (08:59)
[2019-01-25] MEDS: Ascorbic Acid 500 mg Chewable Tablet PO SCH (09:00)
[2019-01-25] MEDS: Vit A,C & E/Lutein/Minerals Tablet PO SCH (09:00)
[2019-01-25] MEDS: Docusate 100 MG CAP PO SCH (09:00)
[2019-01-25] MEDS: cefTRIAXone\\ROCEPHIN 1 GM in Sodium Chloride 0.9% 100 ML IVPB SCH (11:58)
[2019-01-25 13:59] VITALS: BP 115/71; TEMP 98.3
[2019-01-25] MEDS ORDERED: Calcium Carbonate 500 MG ChewTAB PO PRN (14:42)
== END 2019-01-25 15:55 | disposition home or self-care (01) | DRG 713 ==
LOC: SDC 10:30 → SURG A 16:15
PROVIDERS: ADMIT Urology; ATTEND Urology
PROC: 0VB08ZZ Excision of Prostate, Via Natural or Artificial Opening Endoscopic (ICD-10-PCS; principal; 2019-01-23)
PROC: 0TJB8ZZ Inspection of Bladder, Via Natural or Artificial Opening Endoscopic (ICD-10-PCS; 2019-01-23)
DX: N40.1 Benign prostatic hyperplasia with lower urinary tract symptoms (principal); N13.8 Other obstructive and reflux uropathy; J44.9 Chronic obstructive pulmonary disease, unspecified; Z88.8 Allergy status to other drugs, medicaments and biological substances; Z87.891 Personal history of nicotine dependence; Z85.118 Personal history of other malignant neoplasm of bronchus and lung
CPT/HCPCS: 36415; 80048; 85025; 85610; 85730; 88305; J0696; J3010; J3490

== ENCOUNTER 2019-01-26 09:43 | Inpatient (IN) | payer MEDICARE ==
[2019-01-26 10:31] LABS: #Eosinphils 0.1 thou/uL (0.0-0.7); #Lymphocytes 1.4 thou/uL (1.20-3.40); #Monocytes 1.2 thou/uL (0.11-0.59); #Neutrophils 8.7 thou/uL (1.40-6.50); %Basophils 0.2 % (0.0-1.0); %Eosinophils 0.7 % (0.0-10.0); %Lymphocytes 12.2 % (21.0-51.0); %Monocytes 10.3 % (0.0-10.0); %Neutrophils 76.6 % (42.0-75.0); Hemoglobin 15.5 g/dL (14.0-18.0); Mean Corpuscular Hemoglobin 32.7 pg (27.0-31.0); Mean Platelet Volume 8.2 fL (7.4-10.4); Platelet Count 181 thou/uL (130-400); RBC Distribution Width 11.9 % (11.5-14.5); Red Blood Cell (RBC) Count 4.74 mill/uL (4.70-6.10); White Blood Cell (WBC) Count 11.4 thou/uL (4.8-10.8)
[2019-01-26 10:41] LABS: INR-International Normal Ratio 1.1; PTT 34.6 SEC (22.9-36.1); Prothrombin Time 13.9 SEC (12.0-14.7)
--- NOTE | 2019-01-26 10:43 | ULT ---
VENOUS DUPLEX SONOGRAM LEFT LOWER EXTREMITY: Date: 01/26/19 HISTORY: Left leg pain and edema. FINDINGS: The left common femoral vein and greater saphenous junction were evaluated along with the femoral, de ep femoral, popliteal, and posterior tibial veins. There is good color and spectral Doppler flow, com pression, and augmentation. IMPRESSION: Normal exam. POS: [facility]
[2019-01-26 10:56] LABS: ALT (SGPT) 609 U/L (8-55); AST (SGOT) 221 U/L (5-34); Alkaline Phosphatase 447 U/L (40-110); Anion Gap 14 mmol/L (10-20); BUN (Urea Nitrogen) 13 mg/dL (8.4-25.7); Bilirubin, Total 4.4 mg/dL (0.2-1.2); CK (CPK) 155 U/L (30-200); Calc. Creatinine Clearance 0 mL/min (70-130); Calcium 9.1 mg/dL (7.8-10.44); Carbon Dioxide 31 mmol/L (23-31); Chloride 93 mmol/L (98-107); Estimated GFR-MDRD 84; Globulin 2.5 g/dL (2.4-3.5); Glucose 117 mg/dL (83-110); Lipase 193 U/L (8-78); Potassium 3.7 mmol/L (3.5-5.1); Protein, Total 6.5 g/dL (5.8-8.1); Sodium 134 mmol/L (136-145)
[2019-01-26 11:16] LABS: CKMB 3.5 ng/mL (0-6.6)
--- NOTE | 2019-01-26 11:51 | CT ---
CT PULMONARY ANGIOGRAM WITH IV CONTRAST AND 3-D POSTPROCESSING: HISTORY:COPD, left leg pain and swelling status post prostate surgery and upper right lobectomy FINDINGS: There is good contrast opacification of the pulmonary arterial vasculature without filling defects to suggest pulmonary embolism. The thoracic aorta is without aneurysm. No pleural or pericardial effusions are seen. No pneumothoraces, focal areas of consolidation are noted. There are changes of emphysema. A 5 mm brett id parenchymal nodule is seen in the right lower lobe There are degenerative changes in the spine. Upper abdominal tomograms demonstrate changes of cholecystectomy. IMPRESSION: No CT evidence of pulmonary embolism. Recommendation: Follow-up of the right lung nodule with CT scan is recommended in 12 months.
[2019-01-26] MEDS ORDERED: ISOVUE-370 76%-LOCM 1 ML ONE (12:00)
--- NOTE | 2019-01-26 12:41 | RAD ---
XR Ankle Lt 3 View STANDARD HISTORY: Pain and swelling left ankle FINDINGS: No fracture or dislocation is identified. The ankle mortise is maintained. A posterior calcaneal spur is present. Soft tissue swelling is present.
[2019-01-26] MEDS ORDERED: HYDROcodone/Acetaminophen 10/325 mg Tablet ONE (12:51)
[2019-01-26] MEDS ORDERED: Nitroglycerin 0.4mg/Hour PATCH ONE (12:52)
[2019-01-26] MEDS ORDERED: Aspirin Chewable 81 MG TAB ONE (12:52)
[2019-01-26] MEDS ORDERED: Furosemide 40 MG/4 ML VIAL ONE (12:52)
[2019-01-26] MEDS ORDERED: Nitroglycerin 2% Ointment 1 INCH/1 GM Packet ONE (12:52)
[2019-01-26 12:53] LABS: Bacteria/HPF None Seen HPF (None Seen); Bilirubin Negative (Negative); Blood, Urine 2+ (Negative); Clarity Clear (Clear); Glucose, Urine (Dipstick) Normal (Negative); Leukocyte 25 Leu/uL (Negative); Nitrite Negative (Negative); Protein, Urine (Dipstick) Negative (Neg-Trace); RBC/HPF 21-50 HPF (0-3); Squamous Epithelial None Seen HPF (0-3); Urobilinogen Normal mg/dL (Less than 2)
--- NOTE | 2019-01-26 13:24 | CT ---
CT Lower Ext Lt WO Con History: Evaluate for necrotizing fasciitis Comparison: Ankle radiograph same day Findings: Bones: No fracture or malalignment. No periosteal new bone formation. No periostitis. Moderate plantar calcaneal spur. Soft tissues: There is a large suprapatellar bursa effusion. Extensive chondrocalcinosis of both fibr ocartilage and hyaline cartilage appears also extensive calcifications along numerous ligaments. This indicates calcium pyrophosphate deposition disease. No soft tissue gas. Extensive circumferential swelling of the ankle and foot. Muscles: No pyomyositis. Low-grade intramuscular atrophy of the mid fibers medial head gastrocnemius. Impression: 1. No evidence for necrotizing fasciitis. 2. Advanced pyrophosphate deposition disease. 3. 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 4. Symmetric circumferential soft tissue swelling of the distal tib-fib, ankle, and foot.
--- NOTE | 2019-01-26 13:27 | ULT ---
US Gallbladder RUQ History: Elevated liver enzymes Comparison: Gallbladder ultrasound September 02, 2018 Findings: Real-time grayscale and color evaluation right upper compression of the abdomen was perform ed. Pancreatic duct size upper limits of normal. Hepatic echotexture is without mass. There is intrahepat ic and extra hepatic biliary dilatation. Portal vein is patent with antegrade flow. Common bile duct measures up to 1.5 cm. Prior cholecystectomy. Right kidney measures 13 x 4.6 x 5.6 cm without mass, hydronephrosis, or abnormal calcifications. Impression: New from the August 2018 study is intrahepatic and extrahepatic biliary dilatation along wi th dilatation of the main pancreatic duct suggesting a central obstructive process. ERCP/MRCP recommended.
[2019-01-26 13:59] LABS: Troponin I 0.153 ng/mL (< 0.028)
[2019-01-26] MEDS ORDERED: Digoxin 0.5 MG/2 ML AMP SLOW IVP SCH (14:15)
[2019-01-26] MEDS ORDERED: Digoxin 0.5 MG/2 ML AMP ONE (14:22)
--- NOTE | 2019-01-26 14:25 | CON ---
DATE OF CONSULTATION: CHIEF COMPLAINT: Left foot pain. HISTORY OF PRESENT ILLNESS: This is a 73-year-old male, who underwent a transurethral resection of the prostate on Wednesday. On Wednesday, he noticed that he developed unilateral left leg pain and swelling. No fever. No history of injury of any sort. PAST MEDICAL HISTORY: Significant for history of lung cancer, COPD, atrial fibrillation, BPH, and hypertension. He is also anticoagulated with Eliquis usually and was off for the procedure. PAST SURGICAL HISTORY: Includes right upper lobe lobectomy, cholecystectomy, right elbow surgery, and lumbar spine surgery. MEDICATIONS: Include: 1. Ventolin. 2. Eliquis. 3. Vitamin C. 4. Symbicort. 5. Celexa. 6. Digoxin. 7. Proscar. 8. Lopressor. 9. Singulair. 10. Hytrin. ALLERGIES: HE HAS AN ALLERGY TO DEMEROL. SOCIAL HISTORY: Former smoker. Occasional alcohol. FAMILY HISTORY: Coronary artery disease. PHYSICAL EXAMINATION: VITAL SIGNS: He is afebrile, pulse 90, and blood pressure 114/62. GENERAL: He is awake and alert, does not appear to be in any distress. HEENT: Unremarkable. LUNGS: Clear. HEART: Regular rate and rhythm. ABDOMEN: Soft, nondistended, and nontender. EXTREMITIES: In his left leg, he has edema from the upper calf down. It is slightly erythematous, very tender, again mild erythema. Pulses are bounding and easily palpable. I see no evidence of injury. No skin disruption or source for infection. LABORATORY DATA: His white count is 11.4, hemoglobin and hematocrit of 15 and 47, platelet count 181. Electrolytes; his glucose is elevated at 117. His lipase is elevated at 193. Bilirubin is 4.4. Troponin is up at 0.18. BNP is elevated at 116. His ankle x-rays are normal. CT scan of the chest shows no evidence of pulmonary embolus. Ultrasound of his leg, no evidence a DVT. ASSESSMENT: Painful arthralgia and swelling, possibly related to gouty arthritis. PLAN: Further evaluation by Internal Medicine and Ortho. At this point, do not think he needs any surgical intervention. Job ID: [id number]
[2019-01-26] MEDS ORDERED: Diltiazem 125 MG in Sodium Chloride 0.9% 100 ML IVPB SCH (14:30)
[2019-01-26] MEDS ORDERED: Digoxin 0.125 MG TAB ONE (14:40)
[2019-01-26] MEDS ORDERED: Sodium Chloride 0.9% 250 ML IV SCH (14:45)
[2019-01-26] MEDS ORDERED: Digoxin 0.125 MG TAB PO SCH (14:45)
[2019-01-26 15:30] LABS: Digoxin Less than 0.15 ng/mL (0.8-2.0)
[2019-01-26 17:21] LABS: CKMB 3.1 ng/mL (0-6.6)
--- NOTE | 2019-01-26 17:50 | CON ---
DATE OF CONSULTATION: 01/26/2019 HISTORY OF PRESENT ILLNESS: This is a 73-year-old man, who 3 days ago underwent a TURP of the prostate. He was in the hospital for a couple of days. He went home yesterday, could not urinate when his catheter was removed, so a catheter was replaced. He is going to see me in the office on Wednesday morning for a voiding trial. He comes in now because of left lower extremity pain and swelling. He actually noticed that the night before had not mentioned it yesterday and when got home it got worse. It is very difficult, very painful to walk on. He came in to see Dr. Tmolin today, and I had heard from the on-call physician that he had this problem, so we talked with Dr. Tomlin, and recommend he just go to the ER at [facility] and get an ultrasound done with the suspicion that was probably a DVT. He had been on Eliquis for AFib, but was off starting before the TURP and staying off it for a week or 2. In the emergency center at [facility], his lab work shows a hemoglobin of 15 and a white count of 11.4, mildly elevated. Normal coags. Creatinine 0.9. He had relatively significantly elevated liver function tests in alkaline phosphatase. Urinalysis was done, that showed some red cells and white cells as expected, but was light yellow in color. He had an ultrasound done of his lower extremities, that did not show any evidence of blood clots or deep vein thrombosis. He had a CT angio of the chest, that did not show anything suspicious for pulmonary embolism. Because of the increased liver enzymes, he had a lower abdominal ultrasound, that showed some dilatation of intrahepatic and extrahepatic biliary ductal system. He had a lower extremity CAT scan, that did not show any evidence of any infectious process or mass in the calf. There was some effusion of the knee noted, some crystalline arthropathy is noted. PHYSICAL EXAMINATION: ABDOMEN: Soft. It is nontender. The bladder is not distended. The catheter is draining a clear yellow urine. The penis is without lesion. Testicles descended without mass or tenderness. Rectal exam was not done. EXTREMITIES: From the knee down, the left calf is swollen, but it is not erythematous. There is no bruising. It is even tender just to touch it superficially. It is tender. IMPRESSION: Tender left calf with swelling, that does not appear to be a blood clot in this patient also and new finding of elevated liver enzymes. At this point, the patient will probably be admitted by the medical service to work up both of these abnormalities. I asked Dr. Arriaga to see this patient, make sure he did not think there is anything significant going on in the left calf and he does not. He thinks it possibly could even be a gout. In any event, it does not appear that he will need to be anticoagulated or have a vena caval filter placed. I am okay with him going on aspirin. I would prefer to keep him off Eliquis for another week if possible, however. Please re-consult if any further urologic abnormalities arise. Job ID: [id number]
[2019-01-26] MEDS ORDERED: Ondansetron PF 4 MG/2 ML Vial IVP PRN (19:00)
[2019-01-26] MEDS ORDERED: Ondansetron ODT 4 MG TAB SL PRN (19:00)
[2019-01-26] MEDS ORDERED: HYDROcodone/Acetaminophen 5/325 mg Tablet PO PRN ×2 (19:00)
[2019-01-26] MEDS ORDERED: Acetaminophen 325 MG TAB PO PRN (19:00)
[2019-01-26 19:48] VITALS: BMI 26.4
[2019-01-26] MEDS: Ciprofloxacin 500 MG TAB PO SCH (19:53)
[2019-01-26] MEDS: Famotidine/PF 20 mg/2ml Vial SLOW IVP SCH (19:54)
--- NOTE | 2019-01-26 21:24 | CON ---
DATE OF CONSULTATION: 01/26/2019 REASON FOR CONSULTATION: Atrial fibrillation with an increased ventricular response, swelling of the left lower extremity. HISTORY OF PRESENT ILLNESS: Mr. Lawrence is a very pleasant 73-year-old gentleman. He has a history of chronic atrial fibrillation. The patient recently underwent transurethral resection of the prostate. He was released to home, did well, but then came back to the hospital after being referred back with severe pain in the left lower extremity and some swelling in the left calf. Ultrasound did not show any evidence of deep venous thrombosis. The patient continues to complain of pain. It sounds like most of the pain is actually in his ankle and in his toes as well. He said he could not even move the toes as they are so painful. PAST MEDICAL HISTORY: He has chronic atrial fibrillation, rate controlled on metoprolol and digoxin, but he said he has been off digoxin perioperatively. MEDICATIONS: 1. Prior to admission, he was taking metoprolol, long acting. 2. He was not on the digoxin. 3. He has been taken off the apixaban due to transurethral resection of the prostate. ALLERGIES: TO DEMEROL. SOCIAL HISTORY: He is extremely active, works very hard physical work, no complaints or problems. PHYSICAL EXAMINATION: GENERAL: This is a pleasant 73-year-old gentleman, resting comfortably now. He said his ankle still hurts. VITAL SIGNS: Blood pressure in the emergency room 130/60, pulse is 110 or 120 earlier, now it is in the 70s. HEENT: Eyes, sclerae are nonicteric. Mouth, mucous membranes are moist. NECK: Supple. No lymphadenopathy. LUNGS: Clear. CARDIAC: Irregularly irregular. ABDOMEN: Soft, nontender. EXTREMITIES: No clubbing or cyanosis. There is moderate edema in left calf, minimal on the right side. His ankle is very painful. PERTINENT LABORATORY DATA: Troponin, it is indeterminate at 0.153. Hemoglobin is 15.5. Uric acid is low at 4.3. ASSESSMENT: 1. Left ankle pain, clinically somewhat suspicious for gout due to the severity of the pain, although uric acid level is low at 4.3. 2. Indeterminate troponin, probably demand ischemia from atrial fibrillation with a rapid rate. PLAN: 1. Agree with giving digoxin. 2. We will check a digoxin level tomorrow. 3. Continue Cardizem tonight. 4. May give additional digoxin tomorrow if the levels are low. 5. Give him one dose of colchicine. Job ID: [id number]
--- NOTE | 2019-01-26 23:06 | CON ---
DATE OF CONSULTATION: This is Martín Rooney PA-C dictating a report for Dragan Montalvo MD. HISTORY OF PRESENT ILLNESS: We are asked by hospitalist service to see the patient for left leg swelling, redness. The patient started having some pain on Wednesday and he had a TURP this past week. No injuries. The patient states he is 80% better since he came in after he got 40 mg of Lasix. Per family who is in the room and the patient, he is able to flex and extend his foot. It is about half the size as it was when he came in and pain again is remarkably better. PAST MEDICAL HISTORY: Positive for lung cancer, COPD, atrial fibrillation, BPH, hypertension. He takes Eliquis, but was off for his recent procedure. PAST SURGICAL HISTORY: Right upper lobe lobectomy, cholecystectomy, elbow surgery, lumbar spine surgery x3. MEDICATIONS: 1. Ventolin. 2. Eliquis, which is on hold. 3. Vitamin C. 4. Symbicort. 5. Celexa. 6. Digoxin. 7. Proscar. 8. Lopressor. 9. Singulair. 10. Hytrin. ALLERGIES: DEMEROL. SOCIAL HISTORY: Resides with family, is retired, past smoker, rare EtOH, beverage. FAMILY HISTORY: For this visit is noncontributory. REVIEW OF SYSTEMS: Leg pain is better. Denies any chest pain or shortness of breath. He is quite comfortable, resting on the gurney in room 7. Family is at bedside. Rest of review of systems IS negative. PHYSICAL EXAMINATION: GENERAL: Well-nourished, well-developed male, alert, pleasant, in no acute distress. Speech is clear. Affect is pleasant. Answers questions appropriately. Alert and oriented x3. HEENT: Normal exam. Face symmetric. Tongue midline. NECK: Supple. Trachea midline. RESPIRATORY: No acute distress. Breathing at 16 respirations per minute. EXTREMITIES: Upper extremities; equal, size, shape, symmetry, normal bulk tone. IV is in the right arm. Lower extremities; left lower extremity does have some edema to the ankle and knee, but the patient is able to flex and extend knee and ankle with no pain. Also, family states that his left lower extremity is about half the size after getting some Lasix. He does have some varicosities to the lower extremities. DP and PT pulses and sensations are grossly intact to lower extremities. I went over patient's x-rays. 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 Also per report it looks like there was some large suprapatellar effusion that is seen on CT, but he has also got some extensive chondrocalcinosis which per report could indicate calcium pyrophosphate deposition. The patient denies any history of pseudogout or gout. He has some joint swelling on and off, but this has been the worst. ASSESSMENT: Left knee ankle edema/effusion, currently better after 40 mg of Lasix. PLAN: Spoke to family. We will check on them tomorrow. Dr. Montalvo and I do not believe he needs to have the knee tapped at this time as the knee and ankle are not warm to the touch and he has no pain with moving knees currently. We will check on him tomorrow to see how he is doing. He may need to see his regular PCP in regard to his knee. He may need to also follow up with our orthopedic group if his knee continues to plague him and talk about conservative versus surgical treatments for his knee. The patient and family understand, hopefully continues to get better with his current treatment regime. Job ID: [id number]
[2019-01-26] MEDS ORDERED: Nitroglycerin 2% Ointment 1 INCH/1 GM Packet TOP SCH (23:59)
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
[2019-01-27 04:46] LABS: #Eosinphils 0.1 thou/uL (0.0-0.7); #Lymphocytes 1.7 thou/uL (1.20-3.40); #Monocytes 1.4 thou/uL (0.11-0.59); %Basophils 0.5 % (0.0-1.0); %Eosinophils 1.5 % (0.0-10.0); %Lymphocytes 16.7 % (21.0-51.0); %Monocytes 13.4 % (0.0-10.0); %Neutrophils 67.9 % (42.0-75.0); Hemoglobin 13.4 g/dL (14.0-18.0); Mean Corpuscular HGB CONC 33.6 g/dL (32.0-36.0); Mean Corpuscular Hemoglobin 33.2 pg (27.0-31.0); Mean Corpuscular Volume 98.7 fL (78.0-98.0); Mean Platelet Volume 8.4 fL (7.4-10.4); Platelet Count 168 thou/uL (130-400); RBC Distribution Width 11.9 % (11.5-14.5); Red Blood Cell (RBC) Count 4.02 mill/uL (4.70-6.10); White Blood Cell (WBC) Count 10.3 thou/uL (4.8-10.8)
[2019-01-27 05:04] LABS: Digoxin Less than 0.15 ng/mL (0.8-2.0)
[2019-01-27 05:08] LABS: ALT (SGPT) 370 U/L (8-55); AST (SGOT) 82 U/L (5-34); Albumin 3.3 g/dL (3.4-4.8); Alkaline Phosphatase 325 U/L (40-110); Anion Gap 11 mmol/L (10-20); BUN (Urea Nitrogen) 14 mg/dL (8.4-25.7); Calc. Creatinine Clearance 106 mL/min (70-130); Calcium 8.8 mg/dL (7.8-10.44); Carbon Dioxide 32 mmol/L (23-31); Chloride 95 mmol/L (98-107); Estimated GFR-MDRD Greater than 90; Globulin 2.8 g/dL (2.4-3.5); Glucose 104 mg/dL (83-110); Potassium 3.7 mmol/L (3.5-5.1); Protein, Total 6.1 g/dL (5.8-8.1); Sodium 134 mmol/L (136-145)
[2019-01-27] MEDS: Ciprofloxacin 500 MG TAB PO SCH ×2 (05:56→20:25)
--- NOTE | 2019-01-27 07:16 | HP ---
CHIEF COMPLAINT: Left leg pain and swelling. HISTORY OF PRESENT ILLNESS: Mr. Lawrence is a 73-year-old gentleman, who reports increasing left leg pain and swelling since Wednesday. He states it started in his ankle, and he then began to note swelling in his knee. He noted an area of erythema involving his ankle and reported difficulty bending his toes due to the degree of swelling. He was recently in the hospital for prostate surgery done by Dr. Flowers on Wednesday. The patient states the procedure went well, and he has had slight hematuria that has been slowly improving. He was experiencing urinary retention after the Chu catheter was removed, and therefore, had to be placed again. The patient denies having any fevers, chills, or sweats. Denies any headaches or dizziness. He has noted persistent discoloration of his urine, which today appears orange in color. In the emergency department, he was given a dose of Lasix 40 mg IV and has already noted significant improvement with the swelling noted in his left leg, and he is able to plantarflex/extend as well as wiggle his toes much better. Denies any altered sensation. The patient states he has had a similar episode in the past. In the emergency department, he has undergone multiple investigations including venous Doppler which shows no evidence of a DVT in the left lower extremity. He had an x-ray done of the left ankle that showed no fracture or dislocation. There were soft tissue swelling and a posterior calcaneal spur. He also underwent a CT angiogram of the chest given the degree of swelling and recent prostate procedure, and this was negative for PE. He had laboratory studies that were notable for an elevated white count of 11.4, neutrophils of 76.6%. Sodium 134, potassium 3.7, BUN 13, creatinine 0.89, GFR 84, glucose 117, total bilirubin elevated at 4.4, AST 221, ALT 609, alkaline phosphatase 447. CK 155, CK-MB 3.5. CRP 15. ESR 12. BNP was 116.1. Initial troponin was 0.188, and second troponin improved slightly to 0.153. Lipase was 193. The patient denied having any abdominal pain and states he has had a previous cholecystectomy. Further imaging to assess the hyperbilirubinemia was obtained with a gallbladder ultrasound, which demonstrated intrahepatic and extrahepatic biliary dilation along with dilation of the main pancreatic duct suggesting a central obstructive process. ERCP and MRCP were recommended. Further imaging was obtained of the left leg with CT imaging, which showed no evidence for necrotizing fasciitis. 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 A large suprapatellar joint effusion of the knee, felt to be sequelae of crystalline arthropathy. Symmetric circumferential soft tissue swelling in the distal tib-fib, ankle and foot. The patient was noted to also be in atrial fibrillation with RVR. Given the indeterminate troponin, he was treated with aspirin 324 mg and placed on Nitro-Bid. He was also given [place] for the leg pain. Given 500 mL of normal saline. The patient was noted to be in atrial fibrillation with RVR and reported missing his dose of digoxin this morning. Cardizem ordered by Dr. Osorio. EKG was done showing heart rate of 137, atrial fibrillation with RVR. Heart rate has since improved to 106. Awaiting digoxin level while the plan is to give his usual dose of p.o. digoxin. PAST MEDICAL HISTORY: 1. Atrial fibrillation. 2. History of lung cancer, status post chemotherapy and resection done in the . 3. COPD. 4. BPH. 5. Anxiety. PAST SURGICAL HISTORY: 1. Upper right lung lobectomy. 2. Cholecystectomy. 3. Right elbow surgery. 4. Lumbar surgery. 5. Recent prostate surgery. SOCIAL HISTORY: The patient is a former smoker. He quit less than 10 years ago. Reports drinking alcohol socially. Denies any illicit drug use. ALLERGIES: DEMEROL. CURRENT MEDICATIONS: 1. Metoprolol. 2. Citalopram. 3. Digoxin. 4. Symbicort. 5. Ventolin HFA. 6. Montelukast. 7. Daliresp. 8. Hydrochlorothiazide. PHYSICAL EXAMINATION: GENERAL: The patient appears well developed, well nourished, is in no acute distress, resting comfortably on the stretcher. VITAL SIGNS: Temperature 98.3, pulse 89, respirations 19, O2 saturation 97% on room air, blood pressure 125/74. HEENT: Normocephalic and atraumatic. Pupils are equal, round, and reactive to light. Sclerae are notable for slight icterus. Oropharynx is clear. NECK: Supple. LUNGS: Clear to auscultation bilaterally. CARDIAC: Regular rate and rhythm. ABDOMEN: Soft, nontender, and nondistended. Normoactive bowel sounds present. No guarding or rigidity. Negative Olmos sign. No renal angle tenderness. EXTREMITIES: Left lower leg notable for erythematous swelling of the left ankle, more prominent on the medial aspect. No significant tenderness on palpation. It is warm to touch. He has swelling extending up to his left knee. Knee without any warmth or erythema. Good mobility. Sensation, intact. NEUROLOGIC: Alert and oriented x3. SKIN: Warm and dry. GENITOURINARY: Chu catheter in place. Urine output appears orange in color. Denies being on any Pyridium since prostate procedure. INVESTIGATIONS: As mentioned above in HPI. IMPRESSION AND PLAN: Mr. Lawrence is a 73-year-old gentleman, who has been referred for management of the followin. Atrial fibrillation with rapid ventricular response. The patient to be started on Cardizem following a 250 bolus of normal saline given blood pressure drop to the low 100s after Nitro-Bid. Nitro-Bid has already been removed. in the 1-teens. Awaiting digoxin level before giving a dose of digoxin as per Dr. Osorio. We will continue to trend troponins. 2. Hyperbilirubinemia. Consult has been placed to GI for ERCP/MRCP. further imaging as per GI. We will continue to monitor LFTs including direct bilirubin. The patient is currently asymptomatic from a GI perspective. Though, he does have some slight scleral icterus and lynsey-colored urine. 3. Left knee swelling/pain. Confirmed large suprapatellar effusion. Noted to have advanced pyrophosphate deposition disease. Consult has been placed to Ortho, and I have notified Dr. Rooney, who plans to tap his knee. Antibiotics to be held until this is done. 4. Status post transurethral resection of the prostate. The patient failed a trial without a catheter. Has Chu in place. Urinalysis and urine culture are requested. Consult has been placed to Urology. 5. Chronic obstructive pulmonary disease. The patient is asymptomatic. Has chronic cough. Will have DuoNeb p.r.n. ordered if needed. We will also resume home medications. 6. Gastrointestinal prophylaxis with famotidine. 7. Deep venous thrombosis prophylaxis. Anticoagulation contraindicated as it could cause significant bleeding. He is status post surgical procedure and has suprapatellar effusion. 8. Code status, full. His surrogate decision maker is his , Pili Lawrence. Case was discussed with Dr. Osorio, who agrees with plan of care as described above. Job ID: [id number]
--- NOTE | 2019-01-27 09:20 | RAD ---
LEFT KNEE 3 VIEWS: HISTORY: Knee pain, effusion. FINDINGS/IMPRESSION: Degenerative changes are present. There is chondrocalcinosis. No fracture, dislocation, or bone jan truction is seen. A joint effusion is present. POS: OFF
[2019-01-27] MEDS: Famotidine/PF 20 mg/2ml Vial SLOW IVP SCH ×2 (09:39→20:25)
[2019-01-27] MEDS ORDERED: Naproxen 500 MG TAB PO SCH (13:00)
--- NOTE | 2019-01-27 13:02 | MRI ---
MRI ABDOMEN WITH AND WITHOUT IV CONTRAST: HISTORY: Abnormal LFTs, biliary dilatation. FINDINGS: Correlation is made with the gallbladder ultrasound of the previous day. There is intra- and extrahepatic biliary ductal dilatation due to filling defects in the distal commo n bile duct consistent with choledocholithiasis. The common bile duct measures 9 m in diameter. The pancreatic duct is not abnormally dilated. No hepatic mass is seen. The spleen, pancreas, adrenal glands, and kidneys are normal. No abnormal postcontrast enhancement is seen. No free fluid or lymphadenopathy is noted. There is no evidence of aneurysmal dilatation of the abdo vin aorta. The bone marrow signal is normal. There are changes of cholecystectomy. IMPRESSION: Biliary obstruction due to choledocholithiasis. POS: OFF
[2019-01-27] MEDS ORDERED: Furosemide 20 MG/2 ML VIAL SLOW IVP SCH (15:15)
--- NOTE | 2019-01-27 15:15 | PDOC.HOSPP ---
- Subjective Encounter Date: 01/27/19 Encounter Time: 12:00 Subjective: The patient is doing better with medications he got yesterday including lasix and colchicine. He says he wasn't able to bend his knee this morning but now he is able to. He says his ankle was more tender but it is better now. Was told he had gout or pseudogout. Denies alcohol consumption, red meat intake, diuretics as outpatient. Has arthritis He denies abdominal pain, nausea or vomiting He had recent TURP procedure, went home with vazquez. He took it out and had severe abdominal pain and urinary retention and now vazquez is back in - Objective Vital Signs & Weight: Vital Signs (12 hours) Temp Pulse Resp BP Pulse Ox 01/27/19 11:48 97.8 F 79 16 124/63 97 01/27/19 08:20 98.5 F 85 16 121/60 96 Weight Weight 200 lb 11.2 oz I&O: 01/26/19 01/27/19 01/28/19 06:59 06:59 06:59 Intake Total 600 Output Total 600 Balance 0 Result Diagrams: 01/27/19 04:26 01/27/19 04:26 Hospitalist ROS - Review of Systems Constitutional: denies: fever, chills - Medication Medications: Active Medications Generic Name Dose Route Start Last Admin Trade Name Alyssa PRN Reason Stop Dose Admin Ciprofloxacin 500 mg 01/26/19 20:00 01/27/19 05:56 Cipro PO 02/02/19 20:01 500 mg 0600,2000 PINKY Administration Famotidine 20 mg 01/26/19 21:00 01/27/19 09:39 Pepcid SLOW IVP 20 mg Q12HR PINKY Administration Diltiazem HCl 125 mg/ Sodium 125 mls @ 5 mls/hr 01/26/19 14:30 01/27/19 13:12 Chloride IVPB 125 mls INF PINKY Administration Protocol 5 MG/HR - Exam General Appearance: NAD, awake alert Eye: PERRL, anicteric sclera ENT: normocephalic atraumatic, no oropharyngeal lesions, dry oral mucosa Neck: supple, symmetric, no JVD, no thyromegaly Heart: RRR, no murmur, no gallops, no rubs Respiratory: CTAB, no wheezes, no rales, no ronchi Gastrointestinal: soft, non-tender, non-distended, normal bowel sounds Extremities: no cyanosis, no clubbing Extremities - other findings: left ankle erythema, mildly tender. Effusion left knee. Pt can bend leg Skin: normal turgor, no lesions, no rashes Neurological: cranial nerve grossly intact, normal sensation to touch, no focal deficits, no new deficit Musculoskeletal: normal tone, normal strength, no muscle wasting Psychiatric: normal affect, normal behavior, A&O x 3, oriented to person Psychiatric - other findings: : urinary retention Hosp A/P - Plan Doppler US: no DVT CTA: no PE Abd Ultrasound: intrahepatic and extrahepatic biliary dilation of main pancreatic duct CT LLE: no nec fascitis, advanced pyrophosphate deposition diseease. Large suprapatellar joint effusion of knee. Swelling of distal ankle, tib- fib, and foot Ankle X ray: no fracture or dislocation MRI abdomen: choledocholithiasis, biliary obstruction Knee X ray: chondrocalcinosis, joint effusion This is 73 year old male who presented with acute urinary retention, left knee swelling and pain s/p improvement with lasix and vazquez placement Left knee effusion and ankle swelling- possibliy pseudogout - CT LLE, knee X ray showing chondrocalcinosis . US negative for DVT. CTA negative for PE - per ortho no indication to tap to avoid introducing infection - will continue colchicine bid for possible gout - try lasix 20 mg X 1 - obtain ECHO - dopplers negative - apply TYSON stockings Choledocholithiasis - US showed biliary obstruction. MRCP confirms choledocholithiasis. NPO for ERCP tomorrow per GI Atrial fibrillation Elevated troponin - continue metoprolol and digoxin - obtain ECHO, cardiology following Acute urinary retention s/p TURP - s/p vazquez - flomax COPD - continue inhalers History of Lung cancer- s/p chemo and resection Depression - citalopram Dispo: ERCP tomorrow Code status: full code
[2019-01-27] MEDS ORDERED: Tamsulosin HCl 0.4 MG CAP PO SCH (15:30)
--- NOTE | 2019-01-27 15:30 | PRG ---
DATE OF SERVICE: 01/27/2019 SUBJECTIVE: Mr. Lawrence felt better yesterday with his left foot after receiving some Lasix. However, today the swelling has gone back up a bit and is hurting him a little bit more again. He has no nausea, vomiting, or abdominal pain. He is tolerating a solid diet well. He had MRI this morning, which shows evidence of choledocholithiasis. OBJECTIVE: VITAL SIGNS: Temperature is 98.2, pulse 85, blood pressure 120/57. GENERAL: He is in no acute distress. Alert and oriented x3. LUNGS: Clear to auscultation bilaterally. HEART: Irregularly irregular. No murmur. ABDOMEN: Soft, nontender, nondistended. Bowel sounds are present. EXTREMITIES: Trace edema in left lower extremity. LABORATORY DATA: White blood cell count 10.3, hemoglobin 13.4, platelets 168. INR 1.1. Bilirubin 2.0, down from 4.4 yesterday. AST 82, ALT 370, alkaline phosphatase 325. Lipase yesterday was 193. IMPRESSION: 1. Choledocholithiasis. MRCP today shows intra and extrahepatic biliary duct dilation with filling defects in the distal common bile duct. The bile duct measured 9 mm. 2. History of atrial fibrillation. He is currently rate controlled. He is off Eliquis. 3. Status post transurethral resection of the prostate several days ago. 4. Inflammation and pain in the left ankle. He is being treated for possible pseudogout or gout. RECOMMENDATIONS: 1. N.p.o. past midnight. 2. ERCP tomorrow. I discussed the risks and benefits of ERCP in detail with the patient. Risks including pancreatitis, failure to cannulate selectively the common bile duct, bleeding, perforation. Job ID: [id number]
[2019-01-27] MEDS ORDERED: Digoxin 0.5 MG/2 ML AMP SLOW IVP SCH (16:30)
[2019-01-27] MEDS ORDERED: methylPREDNISolone Sod Succ 40 MG VIAL IVP SCH (17:00)
--- NOTE | 2019-01-27 17:00 | PRG ---
DATE OF SERVICE: 01/27/2019 SUBJECTIVE: Mr. Lawrence's main complaint is severe pain in the left foot. He said that he thinks he got better with furosemide yesterday. He also got colchicine. He said it is much worse this afternoon however than it was this morning. OBJECTIVE: VITAL SIGNS: His blood pressure earlier was low but now the most recent recorded is 124/63, pulse 80. LUNGS: Clear. CARDIAC: Irregularly irregular. ABDOMEN: Soft, nontender. EXTREMITIES: The left foot is swollen but not red. ASSESSMENT: 1. Pain in the left foot, possibly gout or pseudogout. 2. Chronic atrial fibrillation. 3. Gallstones. PLAN: 1. I explained to him that if he has gout, furosemide may worsen his problem, but when he said it really helped him yesterday, we will give him one single dose of intravenous furosemide. 2. He is going to need some fluid this evening to avoid volume depletion. 3. We hold off on Flomax at least until tomorrow night in view of the relatively low blood pressure. 4. Could not be anticoagulated with recent TURP. 5. We will give him a dose of intravenous digoxin as levels are very low. 6. At some point once he stabilizes, change him from Cardizem back to metoprolol. Job ID: [id number]
[2019-01-27] MEDS: Sodium Chloride 0.9% 1,000 ML IV SCH (20:26)
[2019-01-28] MEDS: Ciprofloxacin 500 MG TAB PO SCH ×2 (05:30→19:43)
[2019-01-28 06:56] LABS: #Lymphocytes 0.6 thou/uL (1.20-3.40); #Monocytes 0.7 thou/uL (0.11-0.59); #Neutrophils 8.4 thou/uL (1.40-6.50); %Basophils 0.1 % (0.0-1.0); %Eosinophils 0.4 % (0.0-10.0); %Lymphocytes 6.3 % (21.0-51.0); %Monocytes 7.1 % (0.0-10.0); %Neutrophils 86.2 % (42.0-75.0); Hemoglobin 13.3 g/dL (14.0-18.0); Mean Corpuscular HGB CONC 34.2 g/dL (32.0-36.0); Mean Corpuscular Hemoglobin 33.9 pg (27.0-31.0); Mean Corpuscular Volume 99.1 fL (78.0-98.0); Mean Platelet Volume 8.8 fL (7.4-10.4); Platelet Count 201 thou/uL (130-400); RBC Distribution Width 11.7 % (11.5-14.5); Red Blood Cell (RBC) Count 3.93 mill/uL (4.70-6.10); White Blood Cell (WBC) Count 9.7 thou/uL (4.8-10.8)
[2019-01-28 06:57] LABS: Hemoglobin 13.6 g/dL (14.0-18.0); Mean Corpuscular HGB CONC 34.7 g/dL (32.0-36.0); Mean Corpuscular Hemoglobin 34.4 pg (27.0-31.0); Mean Corpuscular Volume 99.1 fL (78.0-98.0); Mean Platelet Volume 8.7 fL (7.4-10.4); Platelet Count 206 thou/uL (130-400); RBC Distribution Width 11.7 % (11.5-14.5); Red Blood Cell (RBC) Count 3.96 mill/uL (4.70-6.10); White Blood Cell (WBC) Count 9.5 thou/uL (4.8-10.8)
[2019-01-28 07:16] LABS: ALT (SGPT) 246 U/L (8-55); AST (SGOT) 35 U/L (5-34); Albumin 3.5 g/dL (3.4-4.8); Alkaline Phosphatase 270 U/L (40-110); Anion Gap 13 mmol/L (10-20); BUN (Urea Nitrogen) 24 mg/dL (8.4-25.7); Bilirubin, Total 1.2 mg/dL (0.2-1.2); Calc. Creatinine Clearance 96 mL/min (70-130); Calcium 8.9 mg/dL (7.8-10.44); Carbon Dioxide 29 mmol/L (23-31); Chloride 97 mmol/L (98-107); Estimated GFR-MDRD 82; Glucose 140 mg/dL (83-110); Potassium 3.8 mmol/L (3.5-5.1); Protein, Total 6.5 g/dL (5.8-8.1); Sodium 135 mmol/L (136-145)
[2019-01-28] MEDS ORDERED: Iothalamate Meglumine 60% 50 ML VIAL FS ONE (07:48)
[2019-01-28] MEDS ORDERED: Indomethacin 50 MG SUPP ONE (08:04)
[2019-01-28] MEDS ORDERED: Fentanyl 100 MCG/2 ML VIAL ONE (08:11)
[2019-01-28] MEDS ORDERED: Tamsulosin HCl 0.4 MG CAP PO SCH ×2 (09:00)
--- NOTE | 2019-01-28 10:44 | PDOC.HOSPP ---
- Subjective Encounter Date: 01/28/19 Encounter Time: 10:42 Subjective: Patient seen and examined. No new complaints. No overnight events. back from ERCP, not successful. to f/u with [facility]. blood in the urine from vazquez fatigued. Pain and swelling better in left leg. - Objective Vital Signs & Weight: Vital Signs (12 hours) Temp Pulse Resp BP Pulse Ox 01/28/19 04:00 97.8 F 91 16 112/62 94 L 01/28/19 00:00 71 106/58 L Weight Weight 200 lb 11.2 oz I&O: 01/27/19 01/28/19 01/29/19 06:59 06:59 05:59 Intake Total 600 1440 Output Total 600 900 Balance 0 540 Result Diagrams: 01/28/19 06:31 01/28/19 06:31 Additional Labs: Accuchecks 01/27/19 20:35 POC Glucose 144 H Hospitalist ROS - Medication Medications: Active Medications Generic Name Dose Route Start Last Admin Trade Name Freq PRN Reason Stop Dose Admin Ciprofloxacin 500 mg 01/26/19 20:00 01/28/19 05:30 Cipro PO 02/02/19 20:01 500 mg 0600,2000 PINKY Administration Colchicine 0.6 mg 01/27/19 21:00 01/27/19 20:25 Colchicine PO 0.6 mg BID PINKY Administration Famotidine 20 mg 01/26/19 21:00 01/27/19 20:25 Pepcid SLOW IVP 20 mg Q12HR PINKY Administration - Exam General Appearance: NAD Eye: anicteric sclera ENT: normocephalic atraumatic Neck: supple Heart - other findings: bradycardia Respiratory: CTAB Gastrointestinal: soft Musculoskeletal - other findings: left leg swelling Psychiatric: normal affect Hosp A/P (1) Gout attack Code(s): M10.9 - GOUT, UNSPECIFIED Status: Acute (2) Edema Code(s): R60.9 - EDEMA, UNSPECIFIED Status: Acute (3) Bradycardia Code(s): R00.1 - BRADYCARDIA, UNSPECIFIED Status: Acute (4) Abnormal LFTs Code(s): R94.5 - ABNORMAL RESULTS OF LIVER FUNCTION STUDIES Status: Acute (5) Hyponatremia Code(s): E87.1 - HYPO-OSMOLALITY AND HYPONATREMIA Status: Acute (6) BPH (benign prostatic hyperplasia) Code(s): N40.0 - BENIGN PROSTATIC HYPERPLASIA WITHOUT LOWER URINRY TRACT SYMP Status: Chronic (7) Hypertension Code(s): I10 - ESSENTIAL (PRIMARY) HYPERTENSION Status: Chronic (8) PAF (paroxysmal atrial fibrillation) Code(s): I48.0 - PAROXYSMAL ATRIAL FIBRILLATION Status: Chronic - Plan old records reviewed/req, plan discussed w/ family, vazquez catheter, PT/OT, social media editor, DVT proph w/SCDs pain and edema better in the leg. continue colchicine. will stop IVF. PT to eval. ERCP not successful and need to repeat at [facility]. AM labs.
--- NOTE | 2019-01-28 10:47 | OP ---
DATE OF PROCEDURE: 01/28/2019 PROCEDURE PERFORMED: Incomplete endoscopic retrograde cholangiopancreatography. PREOPERATIVE DIAGNOSES: Choledocholithiasis and obstructive liver tests. DESCRIPTION OF PROCEDURE: Informed consent was obtained from the patient. He was sedated with general anesthesia and placed in the prone position. The duodenoscope was advanced easily to the second portion of the duodenum. The ampulla was identified and appeared unremarkable. There was no bile flow that was visualized from the ampulla. The ampulla was cannulated with a sphincterotome and guidewire. The common bile duct could not be selectively cannulated and the ampulla appeared swollen and the procedure was canceled. The guidewire was advanced one time into the distal pancreatic duct. This duct did not cross the midline, but was more likely pancreatic. The air and fluid were suctioned from the stomach. The patient tolerated the procedure well. The patient did receive antibiotics and rectal indomethacin prior to the procedure. The patient was receiving lactated Ringer bolus as well. IMPRESSION: Attempted endoscopic retrograde cholangiopancreatography, unable to selectively cannulate the common bile duct. RECOMMENDATIONS: 1. He will be referred as an outpatient to [place] for repeat attempt at ERCP. As his liver tests are improving and this has been more of a chronic symptom over the last few months and this was more of an incidental finding during this hospitalization, he should not require inpatient transfer. 2. He will be monitored over the next couple of hours for any signs of pancreatitis. If no problems, then he can advance his diet and he can be discharged home whenever appropriate from his other problems related to his hospitalization. We will initiate outpatient transfer. Job ID: [id number]
[2019-01-28] MEDS: Famotidine/PF 20 mg/2ml Vial SLOW IVP SCH ×2 (10:57→19:43)
[2019-01-28] MEDS ORDERED: PROPOFOL 200 MG/20 ML VIAL ONE (12:14)
[2019-01-28] MEDS ORDERED: Lidocaine 2% PF 5 ML VIAL ONE (12:14)
[2019-01-28] MEDS ORDERED: Rocuronium Bromide 10 MG/ML (10ML VIAL) ONE (12:14)
[2019-01-28] MEDS ORDERED: Ondansetron PF 4 MG/2 ML Vial ONE (12:14)
[2019-01-28] MEDS ORDERED: Glycopyrrolate 0.2 MG/ML 5 ML SYRINGE ONE (12:14)
[2019-01-28] MEDS: Sodium Chloride 0.9% 1,000 ML IV SCH (12:49)
[2019-01-28] MEDS ORDERED: Furosemide 40 MG/4 ML VIAL SLOW IVP SCH (13:15)
[2019-01-29 04:58] LABS: #Basophils 0.1 thou/uL (0.0-0.2); #Eosinphils 0.1 thou/uL (0.0-0.7); #Monocytes 1.2 thou/uL (0.11-0.59); %Basophils 0.5 % (0.0-1.0); %Eosinophils 1.4 % (0.0-10.0); %Lymphocytes 19.3 % (21.0-51.0); %Monocytes 11.3 % (0.0-10.0); %Neutrophils 67.5 % (42.0-75.0); Hemoglobin 12.4 g/dL (14.0-18.0); Mean Corpuscular HGB CONC 33.1 g/dL (32.0-36.0); Mean Corpuscular Hemoglobin 32.8 pg (27.0-31.0); Mean Corpuscular Volume 99.2 fL (78.0-98.0); Mean Platelet Volume 8.2 fL (7.4-10.4); Platelet Count 215 thou/uL (130-400); RBC Distribution Width 11.7 % (11.5-14.5); Red Blood Cell (RBC) Count 3.76 mill/uL (4.70-6.10); White Blood Cell (WBC) Count 10.3 thou/uL (4.8-10.8)
[2019-01-29 05:21] LABS: ALT (SGPT) 171 U/L (8-55); AST (SGOT) 20 U/L (5-34); Albumin 3.3 g/dL (3.4-4.8); Alkaline Phosphatase 225 U/L (40-110); Anion Gap 11 mmol/L (10-20); BUN (Urea Nitrogen) 23 mg/dL (8.4-25.7); Bilirubin, Total 0.7 mg/dL (0.2-1.2); Calc. Creatinine Clearance 98 mL/min (70-130); Calcium 8.6 mg/dL (7.8-10.44); Carbon Dioxide 31 mmol/L (23-31); Chloride 99 mmol/L (98-107); Estimated GFR-MDRD 84; Globulin 2.7 g/dL (2.4-3.5); Glucose 112 mg/dL (83-110); Potassium 3.4 mmol/L (3.5-5.1); Sodium 138 mmol/L (136-145)
[2019-01-29] MEDS: Ciprofloxacin 500 MG TAB PO SCH (05:29)
[2019-01-29] MEDS: Famotidine/PF 20 mg/2ml Vial SLOW IVP SCH (09:00)
--- NOTE | 2019-01-29 09:24 | PDOC.HOSPP ---
- Subjective Encounter Date: 01/29/19 Encounter Time: 09:22 Subjective: Pt is feeling much better. Leg pain and swelling much better. wants to go home. - Objective Vital Signs & Weight: Vital Signs (12 hours) Temp Pulse Resp BP Pulse Ox 01/29/19 07:50 97.4 F L 70 16 128/70 97 01/29/19 03:40 97.7 F 66 19 128/67 94 L 01/29/19 00:02 84 120/63 Weight Weight 200 lb 11.2 oz I&O: 01/28/19 01/29/19 01/30/19 07:59 06:59 06:59 Intake Total Output Total Balance Result Diagrams: 01/29/19 01:43 CATEGORY CONSULTANT 01/29/19 01:43 CATEGORY CONSULTANT Hospitalist ROS - Medication Medications: Active Medications Generic Name Dose Route Start Last Admin Trade Name Freq PRN Reason Stop Dose Admin Ciprofloxacin 500 mg 01/26/19 20:00 01/29/19 05:29 Cipro PO 02/02/19 20:01 500 mg 06,1999 PINKY Administration Colchicine 0.6 mg 01/27/19 21:00 01/29/19 09:00 Colchicine PO 0.6 mg BID PINKY Administration Diltiazem HCl 30 mg 01/28/19 12:00 01/29/19 05:29 Cardizem PO 30 mg Q6HR PINKY Administration Famotidine 20 mg 01/26/19 21:00 01/29/19 09:00 Pepcid SLOW IVP 20 mg Q12HR PINKY Administration Sodium Chloride 10 ml 01/26/19 15:26 01/28/19 19:43 Flush - Normal Saline IVF 10 ml Q12HR PRN Administration Saline Flush - Exam General Appearance: NAD Eye: anicteric sclera ENT: normocephalic atraumatic Neck: supple Heart: irregular Respiratory: CTAB Gastrointestinal: soft Extremities: 1+ LE edema Extremities - other findings: 1+edema on left leg Skin: normal turgor Neurological: no weakness Musculoskeletal: normal tone Psychiatric: normal affect Hosp A/P (1) Gout attack Code(s): M10.9 - GOUT, UNSPECIFIED Status: Acute (2) Edema Code(s): R60.9 - EDEMA, UNSPECIFIED Status: Acute (3) Bradycardia Code(s): R00.1 - BRADYCARDIA, UNSPECIFIED Status: Acute (4) Abnormal LFTs Code(s): R94.5 - ABNORMAL RESULTS OF LIVER FUNCTION STUDIES Status: Acute (5) Hyponatremia Code(s): E87.1 - HYPO-OSMOLALITY AND HYPONATREMIA Status: Acute (6) BPH (benign prostatic hyperplasia) Code(s): N40.0 - BENIGN PROSTATIC HYPERPLASIA WITHOUT LOWER URINRY TRACT SYMP Status: Chronic (7) Hypertension Code(s): I10 - ESSENTIAL (PRIMARY) HYPERTENSION Status: Chronic (8) PAF (paroxysmal atrial fibrillation) Code(s): I48.0 - PAROXYSMAL ATRIAL FIBRILLATION Status: Chronic - Plan old records reviewed/req, plan discussed w/ family, vazquez catheter, continue antibiotics, social work job titles pain and edema better in the leg. continue colchicine. ERCP not successful and need to repeat at [place]. plan to send home on colchicine. One dose of lasix today per cardiology. f/u with urology tomorrow. f/u with PCP in one week.
[2019-01-29] MEDS ORDERED: Furosemide 40 MG/4 ML VIAL SLOW IVP SCH (09:30)
[2019-01-29] MEDS ORDERED: Potassium Chloride 20 MEQ TAB PO SCH (09:45)
[2019-01-29 11:48] VITALS: BP 136/78; TEMP 98.1
--- NOTE | 2019-01-30 05:17 | DIS ---
DATE OF ADMISSION: 01/26/2019 DATE OF DISCHARGE: 01/29/2019 DISCHARGE DIAGNOSES: 1. Left knee pain and swelling, most likely from gout/pseudogout attack. 2. Edema of the left leg. 3. Bradycardia. 4. Atrial fibrillation with rapid ventricular response. 5. Benign prostatic hyperplasia status post TURP. 6. Hyponatremia. 7. Choledocholithiasis. 8. History of hypertension. 9. Acute urinary retention. 10. History of lung cancer. 11. Depression. CONSULTS: 1. Dr. Cruz from GI for choledocholithiasis. 2. Dr. Rooney from Ortho for left knee swelling. 3. Dr. Nava from Cardiology. PROCEDURES: Attempted ERCP, but failed. HOSPITAL COURSE: This is a 73-year-old male who was admitted to the hospital with left leg swelling, was also found to have atrial fibrillation with RVR and he was on Cardizem drip and later on p.o. Cardizem and his rate was controlled. For the left leg swelling, Ortho was consulted. There was no need for and he was started on colchicine for concerns of gout and got better. He was also given some Lasix for his swelling by Cardiology. Overall, he improved. He was feeling much better, wanted to go home on the day of discharge. He was also found to have choledocholithiasis with elevated liver functions and Dr. Cruz was consulted and attempted to have ERCP, which was failed and plan is to send him to [facility] to repeat the test. The patient and family understood the situation and wanted to go home. The patient also had a recent TURP by Dr. Flowers and he is on a Chu, which was showing hematuria, which was also getting clear and he has an appointment tomorrow with Dr. Flowers on 01/30/2019. His blood thinner Eliquis was on hold until he is cleared from Urology and GI surgeon. Family is aware of that and also follow with Cardiology closely. He was also started on Cipro by Dr. Flowers for 2 weeks preprocedure. DISCHARGE MEDICATIONS: 1. Metoprolol 50 mg nightly. 2. Red yeast. 3. Symbicort. 4. Vitamin C. 5. Digoxin. 6. Celexa. 7. Cipro 500 mg p.o. b.i.d. 8. Ventolin 90 mcg. 9. Daliresp. 10. Montelukast. 11. Vitamin A and C. 12. Colchicine 0.6 mg p.o. b.i.d. DISCHARGE INSTRUCTIONS: Essentially, he will be continuing all his medications and colchicine was added for 5 more days for his gout control and follow with PCP, and Cardizem was stopped at the hospital and switched him back to his home dose of metoprolol. He was also given Cipro for [address] Flowers, which he will be continuing at home. CONDITION ON DISCHARGE: Stable. DISPOSITION: To home. DISCHARGE FOLLOWUP: With primary care physician in 1 to 2 weeks. Follow up with GI in 1 to 2 weeks. Follow up with Cardiology in 2 to 4 weeks and follow up with Dr. Flowers, Urology in 1 week. Please note that I did spend more than 30 minutes coordinating the discharge care of this patient, answering all the questions and talking with the specialists. Plan discussed with Dr. Lantigua, who was covering for Cardiology. Job ID: [id number]
== END 2019-01-29 12:15 | disposition home or self-care (01) | DRG 445 ==
LOC: ERS 09:43 → ERHOLD 13:28 → 2NO 18:29
PROVIDERS: ADMIT Internal Medicine; ATTEND Internal Medicine
PROC: 0FJB8ZZ Inspection of Hepatobiliary Duct, Via Natural or Artificial Opening Endoscopic (ICD-10-PCS; principal; 2019-01-28)
DX: K80.50 Calculus of bile duct without cholangitis or cholecystitis without obstruction (principal); I48.20 Chronic atrial fibrillation, unspecified; E87.1 Hypo-osmolality and hyponatremia; R00.1 Bradycardia, unspecified; I48.0 Paroxysmal atrial fibrillation; N40.1 Benign prostatic hyperplasia with lower urinary tract symptoms; R33.8 Other retention of urine; F32.9 Major depressive disorder, single episode, unspecified; F41.9 Anxiety disorder, unspecified; J44.9 Chronic obstructive pulmonary disease, unspecified; M11.262 Other chondrocalcinosis, left knee; I10 Essential (primary) hypertension; Z79.01 Long term (current) use of anticoagulants; Z92.21 Personal history of antineoplastic chemotherapy; Z85.118 Personal history of other malignant neoplasm of bronchus and lung; Z87.891 Personal history of nicotine dependence; Z79.899 Other long term (current) drug therapy; Z90.49 Acquired absence of other specified parts of digestive tract; Z79.52 Long term (current) use of systemic steroids; Z79.51 Long term (current) use of inhaled steroids; Z88.8 Allergy status to other drugs, medicaments and biological substances
CPT/HCPCS: 36415; 36416; 71275; 74183; 74330; 76705; 80053; 80162; 81003; 81015; 82248; 82550; 82553; 83605; 83690; 83735; 83880; 84484; 84550; 85025; 85610; 85652; 85730; 86140; 87040; 93005; 93306; 96361; 96365; 96366; 96375; J1160; J1610; J1940; J2001; J2405; J2704; J2920; J3010; J3490; Q9966; S0028

== ENCOUNTER 2019-06-13 18:38 | Emergency (ER) | payer MEDICARE ==
[2019-06-13 19:10] LABS: #Basophils 0.1 thou/uL (0.0-0.2); #Eosinphils 0.1 thou/uL (0.0-0.7); #Lymphocytes 2.1 thou/uL (1.20-3.40); #Monocytes 1.1 thou/uL (0.11-0.59); #Neutrophils 13.8 thou/uL (1.40-6.50); %Basophils 0.3 % (0.0-1.0); %Eosinophils 0.5 % (0.0-10.0); %Lymphocytes 12.2 % (21.0-51.0); %Monocytes 6.4 % (0.0-10.0); %Neutrophils 80.6 % (42.0-75.0); Hemoglobin 10.4 g/dL (14.0-18.0); Mean Corpuscular HGB CONC 35.1 g/dL (32.0-36.0); Mean Corpuscular Hemoglobin 33.1 pg (27.0-31.0); Mean Corpuscular Volume 94.4 fL (78.0-98.0); Mean Platelet Volume 8.8 fL (7.4-10.4); Platelet Count 233 thou/uL (130-400); Red Blood Cell (RBC) Count 3.15 mill/uL (4.70-6.10); White Blood Cell (WBC) Count 17.1 thou/uL (4.8-10.8)
[2019-06-13 19:32] LABS: ALT (SGPT) 61 U/L (8-55); AST (SGOT) 83 U/L (5-34); Albumin 3.7 g/dL (3.4-4.8); Alkaline Phosphatase 139 U/L (40-110); Anion Gap 18 mmol/L (10-20); BUN (Urea Nitrogen) 52 mg/dL (8.4-25.7); Bilirubin, Total 0.5 mg/dL (0.2-1.2); Calc. Creatinine Clearance 0 mL/min (70-130); Calcium 9.3 mg/dL (7.8-10.44); Carbon Dioxide 22 mmol/L (23-31); Chloride 97 mmol/L (98-107); Estimated GFR-MDRD 66; Globulin 3.1 g/dL (2.4-3.5); Glucose 131 mg/dL (83-110); Potassium 4.8 mmol/L (3.5-5.1); Protein, Total 6.8 g/dL (5.8-8.1); Sodium 132 mmol/L (136-145)
[2019-06-13] MEDS ORDERED: Diltiazem 125 MG/25 ML ONE ×2 (20:19→21:58)
[2019-06-13] MEDS ORDERED: Ondansetron PF 4 MG/2 ML Vial ONE ×2 (21:58→23:16)
[2019-06-13 22:20] LABS: #Basophils 0.1 thou/uL (0.0-0.2); #Eosinphils 0.1 thou/uL (0.0-0.7); #Lymphocytes 3.5 thou/uL (1.20-3.40); #Monocytes 1.4 thou/uL (0.11-0.59); #Neutrophils 10.5 thou/uL (1.40-6.50); %Basophils 0.5 % (0.0-1.0); %Eosinophils 0.8 % (0.0-10.0); %Lymphocytes 22.5 % (21.0-51.0); %Monocytes 9.1 % (0.0-10.0); Hemoglobin 9.1 g/dL (14.0-18.0); Mean Corpuscular HGB CONC 35.2 g/dL (32.0-36.0); Mean Corpuscular Hemoglobin 33.3 pg (27.0-31.0); Mean Corpuscular Volume 94.6 fL (78.0-98.0); Mean Platelet Volume 8.4 fL (7.4-10.4); Platelet Count 231 thou/uL (130-400); RBC Distribution Width 11.9 % (11.5-14.5); Red Blood Cell (RBC) Count 2.74 mill/uL (4.70-6.10); White Blood Cell (WBC) Count 15.7 thou/uL (4.8-10.8)
[2019-06-13 22:21] LABS: INR-International Normal Ratio 1.1; PTT 28.4 SEC (22.9-36.1); Prothrombin Time 14.5 SEC (12.0-14.7)
[2019-06-13] MEDS ORDERED: Pantoprazole 80 MG in Sodium Chloride 0.9% 100 ML IVP SCH (23:00)
== END 2019-06-14 00:26 | disposition short-term general hospital (02) ==
LOC: ERS 18:38
DX: K92.2 Gastrointestinal hemorrhage, unspecified (principal); R10.11 Right upper quadrant pain; R11.2 Nausea with vomiting, unspecified; I48.91 Unspecified atrial fibrillation; J44.9 Chronic obstructive pulmonary disease, unspecified; Z87.891 Personal history of nicotine dependence; Z79.01 Long term (current) use of anticoagulants; Z79.899 Other long term (current) drug therapy; Z79.51 Long term (current) use of inhaled steroids
CPT/HCPCS: 36430; 80053; 82274; 84484; 85025 ×2; 85610; 85730; 86850; 86870; 86900; 86901; 86902; 86905; 86920; 86922; 93005; 96361; 96365; 96374; 96375; 96376; 99291; P9016; 36415; C9113; J2405; J3490

== ENCOUNTER 2021-12-03 08:26 | Outpatient (CLI) | payer MEDICARE | END 2021-12-03 08:27 | disposition home or self-care (01) | LOC: BICMAMMO 08:26 | PROVIDERS: ATTEND Internal Medicine | DX: N64.4 Mastodynia (principal); N63.41 Unspecified lump in right breast, subareolar | CPT/HCPCS: 76642; 77066; G0279 ==

== ENCOUNTER 2021-12-22 16:00 | Outpatient (CLI) | payer MEDICARE | END 2021-12-22 16:01 | disposition home or self-care (01) | LOC: RAD 16:00 | PROVIDERS: ATTEND Otolaryngology Plastic Surgery within the Head & Neck | DX: J32.9 Chronic sinusitis, unspecified (principal) | CPT/HCPCS: 70486 ==

== ENCOUNTER 2023-02-22 06:06 | Inpatient (IN) | payer MEDICARE ==
[2023-02-22] MEDS ORDERED: PROPOFOL 60 ML ONE (06:59)
[2023-03-03 14:30] VITALS: BMI 24.4
[2023-03-03 15:27] LABS: Hematocrit 37.5 % (38.8-50.0); Hemoglobin 11.9 g/dL (13.5-17.5); Mean Corpuscular HGB CONC 31.7 g/dL (32.0-36.0); Mean Corpuscular Hemoglobin 29.2 pg (27.0-33.0); Mean Corpuscular Volume 91.9 fl (81.2-95.1); Mean Platelet Volume 10.4 fl (7.4-10.4); Platelet Count 415 10x3/uL (150-450); RBC Distribution Width 14.1 % (11.5-14.5); Red Blood Cell (RBC) Count 4.08 10x6/uL (4.32-5.72); White Blood Cell (WBC) Count 10.2 10x3/uL (3.5-10.5)
[2023-03-03 15:38] LABS: ALT (SGPT) 13 U/L (8-55); AST (SGOT) 17 U/L (5-34); Albumin 4.1 g/dL (3.4-4.8); Alkaline Phosphatase 81 U/L (40-110); Anion Gap 17 mmol/L (10-20); BUN (Urea Nitrogen) 20 mg/dL (8.4-25.7); Bilirubin, Total 0.5 mg/dL (0.2-1.2); Calc. Creatinine Clearance 85 mL/min (70-130); Calcium 9.9 mg/dL (7.8-10.44); Carbon Dioxide 27 mmol/L (23-31); Chloride 97 mmol/L (98-107); Estimated GFR 89; Globulin 3.2 g/dL (2.4-3.5); Glucose 88 mg/dL (83-110); Potassium 5.1 mmol/L (3.5-5.1); Protein, Total 7.3 g/dL (5.8-8.1); Sodium 136 mmol/L (136-145)
[2023-03-09] MEDS ORDERED: CEFAZOLIN 2 GM VIAL ONE (06:52)
[2023-03-09] MEDS ORDERED: Heparin 10,000 UNITS/ 10 ML VIAL ONE (06:52)
[2023-03-09] MEDS ORDERED: Protamine Sulfate 50 MG/5 ML VIAL ONE ×2 (06:52→11:08)
[2023-03-09] MEDS ORDERED: PROPOFOL 200 MG/20 ML VIAL ONE (07:03)
[2023-03-09] MEDS ORDERED: Lidocaine 1% PF 5 ML VIAL ONE (07:03)
[2023-03-09] MEDS ORDERED: Ondansetron PF 4 MG/2 ML Vial ONE (07:03)
[2023-03-09] MEDS ORDERED: Rocuronium Bromide 10 MG/ML (10ML VIAL) ONE (07:03)
[2023-03-09] MEDS ORDERED: PHENYLEPHRINE-NS 100 MCG/ML 10 ML SYRINGE ONE (07:03)
[2023-03-09] MEDS ORDERED: Norepinephrine 4 MG/4 ML VIAL ONE (07:08)
[2023-03-09] MEDS ORDERED: Vasopressin 20 UNITS/ML VIAL ONE (07:08)
[2023-03-09] MEDS ORDERED: fentaNYL 50 mcg/mL 1 mL Vial ONE ×2 (07:14→07:37)
[2023-03-09] MEDS ORDERED: Sevoflurane 250 ML INH ANEST BOTTLE ONE (07:37)
[2023-03-09] MEDS ORDERED: Iopamidol 370 76% 100 ML VIAL ONE (09:22)
[2023-03-09] MEDS ORDERED: fentaNYL PF 100 MCG/2 ML SYRINGE ONE (09:44)
[2023-03-09] MEDS ORDERED: Acetaminophen 325 MG TAB ONE (14:29)
== END 2023-03-09 14:55 | disposition home or self-care (01) | DRG 274 ==
LOC: SURG A 06:06 → UNDOADMIN 06:06 → SURG A 03-09 06:02
PROVIDERS: ADMIT Internal Medicine Cardiovascular Disease; ATTEND Internal Medicine Cardiovascular Disease
PROC: 02L73DK Occlusion of Left Atrial Appendage with Intraluminal Device, Percutaneous Approach (ICD-10-PCS; principal; 2023-03-09)
PROC: 3E033XZ Introduction of Vasopressor into Peripheral Vein, Percutaneous Approach (ICD-10-PCS; 2023-03-09)
DX: I48.21 Permanent atrial fibrillation (principal); Z00.6 Encounter for examination for normal comparison and control in clinical research program; R26.81 Unsteadiness on feet; Z79.899 Other long term (current) drug therapy
CPT/HCPCS: 33340; 80053; 85027; 85347; 85610; 86850; 86870; 86900; 86901; 86922; 93005; 93306; 93312; C1759; C1760; C1769; C1894; J1644; J2405; J2704; J2720; J3010; Q9967

== ENCOUNTER 2023-02-22 07:17 | Day surgery (SDC) | payer MEDICARE ==
[2023-02-16 10:42] VITALS: BMI 25.6
[2023-02-22] MEDS ORDERED: PROPOFOL 200 MG/20 ML VIAL ONE (07:59)
[2023-02-22] MEDS ORDERED: Lidocaine 1% PF 5 ML VIAL ONE (07:59)
== END 2023-02-22 09:25 | disposition home or self-care (01) ==
LOC: SDC 07:17
PROVIDERS: ATTEND Internal Medicine Gastroenterology
PROC: 0DBL8ZZ Excision of Transverse Colon, Via Natural or Artificial Opening Endoscopic (ICD-10-PCS; principal; 2023-02-22)
PROC: 0W3P8ZZ Control Bleeding in Gastrointestinal Tract, Via Natural or Artificial Opening Endoscopic (ICD-10-PCS; 2023-02-22)
DX: D12.3 Benign neoplasm of transverse colon (principal); K55.20 Angiodysplasia of colon without hemorrhage; K57.30 Diverticulosis of large intestine without perforation or abscess without bleeding; R19.5 Other fecal abnormalities; I10 Essential (primary) hypertension; E78.5 Hyperlipidemia, unspecified; K21.9 Gastro-esophageal reflux disease without esophagitis; I48.91 Unspecified atrial fibrillation; F32.A Depression, unspecified; Z87.891 Personal history of nicotine dependence; Z79.01 Long term (current) use of anticoagulants; Z79.899 Other long term (current) drug therapy; Z90.49 Acquired absence of other specified parts of digestive tract; Z88.5 Allergy status to narcotic agent
CPT/HCPCS: 88305; J2704

== ENCOUNTER 2023-02-23 20:10 | Emergency (ER) | payer MEDICARE ==
[2023-02-23 21:02] LABS: #Basophils 0.1 thou/uL (0.0-0.2); #Eosinphils 0.1 thou/uL (0.0-0.7); #Monocytes 1.1 thou/uL (0.11-0.59); %Basophils 0.6 % (0.0-1.0); %Lymphocytes 13.8 % (21.0-51.0); %Monocytes 10.5 % (0.0-10.0); %Neutrophils 73.7 % (42.0-75.0); Hematocrit 38.2 % (42.0-52.0); Hemoglobin 11.8 g/dL (14.0-18.0); Mean Corpuscular HGB CONC 30.9 g/dL (32.0-36.0); Mean Corpuscular Hemoglobin 29.4 pg (27.0-31.0); Mean Platelet Volume 9.8 fL (7.4-10.4); Platelet Count 277 10x3/uL (130-400); RBC Distribution Width 14.2 % (11.5-14.5); Red Blood Cell (RBC) Count 4.02 mill/uL (4.70-6.10); White Blood Cell (WBC) Count 10.9 10x3/uL (4.8-10.8)
[2023-02-23] MEDS ORDERED: Ondansetron PF 4 MG/2 ML Vial ONE (21:15)
[2023-02-23] MEDS ORDERED: Morphine 4 MG/ML VIAL ONE (21:15)
[2023-02-23 21:27] LABS: ALT (SGPT) 10 U/L (8-55); AST (SGOT) 12 U/L (5-34); Albumin 3.7 g/dL (3.4-4.8); Alkaline Phosphatase 78 U/L (40-110); Anion Gap 10 mmol/L (10-20); BUN (Urea Nitrogen) 19 mg/dL (8.4-25.7); Bilirubin, Total 0.7 mg/dL (0.2-1.2); Calc. Creatinine Clearance 0 mL/min (70-130); Calcium 8.9 mg/dL (7.8-10.44); Carbon Dioxide 30 mmol/L (23-31); Chloride 99 mmol/L (98-107); Estimated GFR 77; Globulin 2.7 g/dL (2.4-3.5); Glucose 159 mg/dL (83-110); Lipase 31 U/L (8-78); Magnesium 1.9 mg/dL (1.6-2.6); Potassium 3.8 mmol/L (3.5-5.1); Protein, Total 6.4 g/dL (5.8-8.1); Sodium 135 mmol/L (136-145)
[2023-02-23 21:28] LABS: Troponin I Less than 0.010 ng/mL (< 0.028)
== END 2023-02-24 00:56 | disposition home or self-care (01) ==
LOC: ERS 20:10
DX: R10.31 Right lower quadrant pain (principal); R10.32 Left lower quadrant pain; J44.9 Chronic obstructive pulmonary disease, unspecified; Z87.891 Personal history of nicotine dependence
CPT/HCPCS: 36415; 74022; 74177; 80053; 83690; 83735; 84484; 85025; 93005; 96361; 96374; 96375; J2270; J2405

== ENCOUNTER 2023-04-22 06:17 | Day surgery (SDC) | payer MEDICARE ==
[2023-04-20 13:33] VITALS: BMI 24.4
[2023-04-22 07:08] LABS: #Monocytes 0.8 thou/uL (0.11-0.59); #Neutrophils 7.6 thou/uL (1.40-6.50); %Basophils 0.4 % (0.0-1.0); %Eosinophils 0.2 % (0.0-10.0); %Lymphocytes 14.1 % (21.0-51.0); %Monocytes 8.2 % (0.0-10.0); %Neutrophils 76.8 % (42.0-75.0); Hemoglobin 11.5 g/dL (14.0-18.0); Mean Corpuscular HGB CONC 31.9 g/dL (32.0-36.0); Mean Corpuscular Volume 90.9 fl (78.0-98.0); Mean Platelet Volume 9.7 fL (7.4-10.4); Platelet Count 293 10x3/uL (130-400); Red Blood Cell (RBC) Count 3.96 mill/uL (4.70-6.10); White Blood Cell (WBC) Count 9.9 10x3/uL (4.8-10.8)
[2023-04-22 07:33] LABS: Anion Gap 11 mmol/L (10-20); BUN (Urea Nitrogen) 22 mg/dL (8.4-25.7); Calc. Creatinine Clearance 97 mL/min (70-130); Calcium 9.4 mg/dL (7.8-10.44); Carbon Dioxide 26 mmol/L (23-31); Chloride 101 mmol/L (98-107); Estimated GFR 93; Glucose 107 mg/dL (83-110); Potassium 4.2 mmol/L (3.5-5.1); Sodium 134 mmol/L (136-145)
[2023-04-22] MEDS ORDERED: Glycopyrrolate 0.2 MG/ML 5 ML SYRINGE ONE (07:45)
[2023-04-22] MEDS ORDERED: PROPOFOL 200 MG/20 ML VIAL ONE (07:45)
== END 2023-04-22 09:00 | disposition home or self-care (01) ==
LOC: SDC 06:17
PROVIDERS: ATTEND Internal Medicine Cardiovascular Disease
PROC: B24BZZ4 Ultrasonography of Heart with Aorta, Transesophageal (ICD-10-PCS; principal; 2023-04-22)
DX: I48.21 Permanent atrial fibrillation (principal); Z88.5 Allergy status to narcotic agent
CPT/HCPCS: 80048; 85025; 93312

== ENCOUNTER 2023-08-19 07:53 | Outpatient (CLI) | payer MEDICARE | END 2023-08-19 07:54 | disposition home or self-care (01) | LOC: BICMRI 07:53 | PROVIDERS: ATTEND Anesthesiology Pain Medicine | DX: M54.81 Occipital neuralgia (principal); M48.02 Spinal stenosis, cervical region; M48.03 Spinal stenosis, cervicothoracic region; Z98.1 Arthrodesis status | CPT/HCPCS: 72141 ==